=== PATIENT | male | born 1930 | race Caucasian/White ===

== ENCOUNTER → 2017-08-29 | Outpatient (CLI) | payer OTHER | LOC: HYPER 07:31 | DX: L89.313 Pressure ulcer of right buttock, stage 3 (principal); L89.612 Pressure ulcer of right heel, stage 2; M19.90 Unspecified osteoarthritis, unspecified site; I10 Essential (primary) hypertension; I25.10 Atherosclerotic heart disease of native coronary artery without angina pectoris; Z98.41 Cataract extraction status, right eye; Z98.42 Cataract extraction status, left eye; Z96.653 Presence of artificial knee joint, bilateral; Z95.1 Presence of aortocoronary bypass graft; Z86.718 Personal history of other venous thrombosis and embolism; Z87.891 Personal history of nicotine dependence; Z86.711 Personal history of pulmonary embolism ==

== ENCOUNTER → 2017-09-26 | Outpatient (CLI) | payer OTHER | LOC: HYPER 09-12 10:08 | DX: L89.313 Pressure ulcer of right buttock, stage 3 (principal); L89.612 Pressure ulcer of right heel, stage 2; M19.90 Unspecified osteoarthritis, unspecified site; I10 Essential (primary) hypertension; I25.10 Atherosclerotic heart disease of native coronary artery without angina pectoris; H26.9 Unspecified cataract; Z96.653 Presence of artificial knee joint, bilateral; Z86.711 Personal history of pulmonary embolism; Z86.718 Personal history of other venous thrombosis and embolism; Z95.1 Presence of aortocoronary bypass graft; Z87.891 Personal history of nicotine dependence ==

== ENCOUNTER → 2017-10-17 | Outpatient (CLI) | payer OTHER | LOC: HYPER 10-16 10:14 | DX: L89.313 Pressure ulcer of right buttock, stage 3 (principal); L89.612 Pressure ulcer of right heel, stage 2; M62.81 Muscle weakness (generalized); M19.90 Unspecified osteoarthritis, unspecified site; Z86.711 Personal history of pulmonary embolism; Z86.718 Personal history of other venous thrombosis and embolism; I25.10 Atherosclerotic heart disease of native coronary artery without angina pectoris; Z95.1 Presence of aortocoronary bypass graft; Z87.891 Personal history of nicotine dependence ==

== ENCOUNTER → 2017-11-13 | Outpatient (CLI) | payer OTHER | LOC: HYPER 11-07 16:54 | DX: L89.612 Pressure ulcer of right heel, stage 2 (principal); L89.313 Pressure ulcer of right buttock, stage 3; M62.81 Muscle weakness (generalized); M19.90 Unspecified osteoarthritis, unspecified site; Z86.711 Personal history of pulmonary embolism; I10 Essential (primary) hypertension; I25.10 Atherosclerotic heart disease of native coronary artery without angina pectoris; Z86.718 Personal history of other venous thrombosis and embolism; Z87.891 Personal history of nicotine dependence ==

== ENCOUNTER → 2017-12-04 | Outpatient (CLI) | payer OTHER | LOC: HYPER 06:56 | DX: L89.313 Pressure ulcer of right buttock, stage 3 (principal); L89.612 Pressure ulcer of right heel, stage 2; M19.90 Unspecified osteoarthritis, unspecified site; I10 Essential (primary) hypertension; I25.10 Atherosclerotic heart disease of native coronary artery without angina pectoris; H26.9 Unspecified cataract; Z96.653 Presence of artificial knee joint, bilateral; Z95.1 Presence of aortocoronary bypass graft; Z86.718 Personal history of other venous thrombosis and embolism; Z86.711 Personal history of pulmonary embolism; Z87.891 Personal history of nicotine dependence ==

== ENCOUNTER → 2018-01-01 | Outpatient (CLI) | payer OTHER | LOC: HYPER 06:50 | DX: L89.313 Pressure ulcer of right buttock, stage 3 (principal); L89.612 Pressure ulcer of right heel, stage 2; M19.90 Unspecified osteoarthritis, unspecified site; I10 Essential (primary) hypertension; I25.10 Atherosclerotic heart disease of native coronary artery without angina pectoris; Z98.49 Cataract extraction status, unspecified eye; Z96.653 Presence of artificial knee joint, bilateral; Z95.1 Presence of aortocoronary bypass graft; Z87.891 Personal history of nicotine dependence; Z86.711 Personal history of pulmonary embolism; Z86.718 Personal history of other venous thrombosis and embolism ==

== ENCOUNTER → 2018-01-29 | Outpatient (CLI) | payer OTHER | LOC: HYPER 06:44 | DX: L89.313 Pressure ulcer of right buttock, stage 3 (principal); L89.612 Pressure ulcer of right heel, stage 2; M19.90 Unspecified osteoarthritis, unspecified site; I10 Essential (primary) hypertension; I25.10 Atherosclerotic heart disease of native coronary artery without angina pectoris; Z96.653 Presence of artificial knee joint, bilateral; Z95.1 Presence of aortocoronary bypass graft; Z86.718 Personal history of other venous thrombosis and embolism; Z86.711 Personal history of pulmonary embolism; Z87.891 Personal history of nicotine dependence ==

== ENCOUNTER → 2018-03-04 | Outpatient (CLI) | payer OTHER | LOC: HYPER 02-26 07:07 | DX: L89.313 Pressure ulcer of right buttock, stage 3 (principal); L89.610 Pressure ulcer of right heel, unstageable; I10 Essential (primary) hypertension; I25.10 Atherosclerotic heart disease of native coronary artery without angina pectoris; M62.89 Other specified disorders of muscle; M62.81 Muscle weakness (generalized); M19.90 Unspecified osteoarthritis, unspecified site; Z98.42 Cataract extraction status, left eye; Z86.718 Personal history of other venous thrombosis and embolism; Z86.711 Personal history of pulmonary embolism; Z85.46 Personal history of malignant neoplasm of prostate; Z98.41 Cataract extraction status, right eye; Z96.653 Presence of artificial knee joint, bilateral; Z95.1 Presence of aortocoronary bypass graft; Z87.891 Personal history of nicotine dependence ==

== ENCOUNTER → 2018-05-29 | Outpatient (CLI) | payer OTHER | LOC: HYPER 06:44 | DX: L89.313 Pressure ulcer of right buttock, stage 3 (principal); L89.612 Pressure ulcer of right heel, stage 2; M62.81 Muscle weakness (generalized); M19.90 Unspecified osteoarthritis, unspecified site; I10 Essential (primary) hypertension; I25.10 Atherosclerotic heart disease of native coronary artery without angina pectoris; Z86.711 Personal history of pulmonary embolism; Z86.718 Personal history of other venous thrombosis and embolism; Z87.891 Personal history of nicotine dependence ==

== ENCOUNTER → 2018-06-19 | Outpatient (CLI) | payer OTHER | LOC: HYPER 06:52 | DX: L89.312 Pressure ulcer of right buttock, stage 2 (principal); L89.612 Pressure ulcer of right heel, stage 2; I25.10 Atherosclerotic heart disease of native coronary artery without angina pectoris; I10 Essential (primary) hypertension; M62.81 Muscle weakness (generalized); M19.90 Unspecified osteoarthritis, unspecified site; F41.9 Anxiety disorder, unspecified; Z96.653 Presence of artificial knee joint, bilateral; Z95.1 Presence of aortocoronary bypass graft; Z86.711 Personal history of pulmonary embolism; Z86.718 Personal history of other venous thrombosis and embolism; Z98.42 Cataract extraction status, left eye; Z98.41 Cataract extraction status, right eye; Z87.891 Personal history of nicotine dependence ==

== ENCOUNTER → 2018-07-08 | Outpatient (CLI) | payer OTHER | LOC: HYPER 06:40 | DX: L89.612 Pressure ulcer of right heel, stage 2 (principal); I10 Essential (primary) hypertension; M62.81 Muscle weakness (generalized); M19.90 Unspecified osteoarthritis, unspecified site; I25.10 Atherosclerotic heart disease of native coronary artery without angina pectoris; Z98.42 Cataract extraction status, left eye; Z86.718 Personal history of other venous thrombosis and embolism; Z98.41 Cataract extraction status, right eye; Z86.711 Personal history of pulmonary embolism; Z96.653 Presence of artificial knee joint, bilateral; Z95.1 Presence of aortocoronary bypass graft; Z87.891 Personal history of nicotine dependence ==

== ENCOUNTER → 2019-12-07 | Outpatient (CLI) | payer OTHER, BC | LOC: HYPER 14:35 | DX: L89.612 Pressure ulcer of right heel, stage 2 (principal); L89.313 Pressure ulcer of right buttock, stage 3; I10 Essential (primary) hypertension; I25.10 Atherosclerotic heart disease of native coronary artery without angina pectoris; K21.9 Gastro-esophageal reflux disease without esophagitis; M62.81 Muscle weakness (generalized); M19.90 Unspecified osteoarthritis, unspecified site; F41.9 Anxiety disorder, unspecified; Z86.711 Personal history of pulmonary embolism; Z86.718 Personal history of other venous thrombosis and embolism; Z87.891 Personal history of nicotine dependence; Z98.41 Cataract extraction status, right eye; Z98.42 Cataract extraction status, left eye; Z96.653 Presence of artificial knee joint, bilateral ==

== ENCOUNTER → 2020-07-20 | Outpatient (CLI) | payer OTHER, BC | LOC: HYPER 14:22 | PROVIDERS: ATTEND Emergency Medicine | DX: L89.612 Pressure ulcer of right heel, stage 2 (principal); L89.313 Pressure ulcer of right buttock, stage 3; L84 Corns and callosities; I10 Essential (primary) hypertension; I25.10 Atherosclerotic heart disease of native coronary artery without angina pectoris; K21.9 Gastro-esophageal reflux disease without esophagitis; M62.81 Muscle weakness (generalized); M19.90 Unspecified osteoarthritis, unspecified site; F41.9 Anxiety disorder, unspecified; Z95.1 Presence of aortocoronary bypass graft; Z86.718 Personal history of other venous thrombosis and embolism; Z86.711 Personal history of pulmonary embolism; Z87.891 Personal history of nicotine dependence; Z98.41 Cataract extraction status, right eye; Z98.42 Cataract extraction status, left eye; Z96.653 Presence of artificial knee joint, bilateral ==

== ENCOUNTER → 2020-08-24 | Outpatient (CLI) | payer OTHER, BC | LOC: HYPER 08-17 17:17 | PROVIDERS: ATTEND Emergency Medicine | DX: L89.612 Pressure ulcer of right heel, stage 2 (principal); L89.313 Pressure ulcer of right buttock, stage 3; L84 Corns and callosities; I10 Essential (primary) hypertension; I25.10 Atherosclerotic heart disease of native coronary artery without angina pectoris; K21.9 Gastro-esophageal reflux disease without esophagitis; M62.81 Muscle weakness (generalized); M19.90 Unspecified osteoarthritis, unspecified site; F41.9 Anxiety disorder, unspecified; Z86.711 Personal history of pulmonary embolism; Z86.718 Personal history of other venous thrombosis and embolism; Z87.891 Personal history of nicotine dependence; Z98.41 Cataract extraction status, right eye; Z98.42 Cataract extraction status, left eye; Z96.653 Presence of artificial knee joint, bilateral ==

== ENCOUNTER → 2021-02-06 | Outpatient (CLI) | payer OTHER, BC | LOC: HYPER 14:06 | PROVIDERS: ATTEND Emergency Medicine | DX: L89.612 Pressure ulcer of right heel, stage 2 (principal); L89.313 Pressure ulcer of right buttock, stage 3; L84 Corns and callosities; E66.9 Obesity, unspecified; I10 Essential (primary) hypertension; I25.10 Atherosclerotic heart disease of native coronary artery without angina pectoris; K21.9 Gastro-esophageal reflux disease without esophagitis; M62.81 Muscle weakness (generalized); M19.90 Unspecified osteoarthritis, unspecified site; F41.9 Anxiety disorder, unspecified; Z86.711 Personal history of pulmonary embolism; Z86.718 Personal history of other venous thrombosis and embolism; Z87.891 Personal history of nicotine dependence; Z98.41 Cataract extraction status, right eye; Z98.42 Cataract extraction status, left eye; Z96.653 Presence of artificial knee joint, bilateral; Z68.24 Body mass index [BMI] 24.0-24.9, adult ==

== ENCOUNTER 2021-07-11 16:37 | Inpatient (IN) | payer OTHER, BC ==
[~2021-07-11] VITALS: Ht 182.9 cm; Wt 78.9 kg
[2021-07-11 16:46] VITALS: BP 194/90
[2021-07-11 17:20] LABS: ABSOLUTE NEUTROPHILS 6.7 thou/uL (1.4-8.2); BASOPHILS 0.8 % (0.0-2.0); EOSINOPHILS 3.1 % (0.0-3.0); HEMATOCRIT 35.2 % (42.0-52.0); HEMOGLOBIN 11.4 gm/dL (14.0-18.0); LYMPHOCYTES 8.3 % (24.0-44.0); MCH 30.6 pg (26.0-34.0); MCHC 32.4 g/dL (28.0-37.0); MCV 94.5 fL (80.0-100.0); MONOCYTES 8.6 % (1.0-8.0); PLATELET COUNT 324 thou/uL (150-400); POLYS 79.2 % (36.0-66.0); RBC 3.72 mil/uL (4.50-6.00); RDW 15.7 % (10.5-14.5); WBC 8.5 thou/uL (4.0-11.0)
[2021-07-11 17:28] LABS: ANION GAP 5 mmol/L (7-16); BUN 20 mg/dL (7-18); CALCIUM 9.6 mg/dL (8.5-10.1); CHLORIDE 105 mmol/L (98-107); CO2 33 mmol/L (21-32); CREATININE 1.4 mg/dL (0.7-1.3); GLUCOSE 99 mg/dL (74-106); POTASSIUM 4.5 mmol/L (3.5-5.1); SODIUM 143 mmol/L (136-145)
[2021-07-11 17:38] LABS: ALBUMIN 3.4 g/dL (3.4-5.0); AMYLASE 35 U/L (25-115); DIRECT BILIRUBIN 0.2 mg/dL (<0.1-0.2); LIPASE 66 U/L (73-393); MAGNESIUM 1.6 mg/dL (1.8-2.4); PHOSPHORUS 3.3 mg/dL (2.6-4.7); SGOT 29 U/L (15-37); SGPT 18 U/L (16-63); TOTAL BILIRUBIN 0.6 mg/dL (0.2-1.0); TOTAL PROTEIN 7.5 g/dL (6.4-8.2); TROPONIN-I <0.06 ng/mL (<0.06)
[2021-07-11 17:50] LABS: BE(vivo) 1.9 mmol/L (-2 to +3); HCO3 26.9 mmol/L (22.0-26.0); PCO2 43.5 mmHg (35.0-45.0); pH 7.409 (7.360-7.450); sO2 93.7 % (92.0-98.0)
[2021-07-11] MEDS ORDERED: FENOFIBRATE160 MG PO (18:21)
[2021-07-11] MEDS ORDERED: CLORAZEPATE DI7.5 M1 PO (18:21)
[2021-07-11] MEDS ORDERED: DEXILANT60 MG PO (18:21)
[2021-07-11] MEDS ORDERED: CARVEDILOL12.5 MG PO (18:22)
[2021-07-11] MEDS ORDERED: NEURONTIN300 MG PO (18:22)
[2021-07-11] MEDS ORDERED: MECLIZINE HCL25 M1 PO (18:22)
[2021-07-11] MEDS ORDERED: CENTRUM SILVER1 EAC5 PO (18:22)
[2021-07-11] MEDS ORDERED: VASOTEC5 MG PO (18:23)
[2021-07-11] MEDS ORDERED: ELIQUIS5 MG PO (18:23)
[2021-07-11] MEDS ORDERED: VITAMINC500 PO (18:23)
[2021-07-11] MEDS ORDERED: LEVO-T50 MCG PO (18:23)
[2021-07-11 20:11] VITALS: BP 153/73
[2021-07-11 20:30] VITALS: BP 151/73
--- NOTE | 2021-07-12 03:41 | NUR ---
PT WAS ADMITTED TO THE UNIT FROM THE ER IN A STABLE CONDITION IN THE COMPANY OF HIS .ADMISSION HX,EDUCATION AND ASSESSMENT COMPLETED.PT'S O2 SAT WAS IN MID 70'S ON ADMIT.RT WAS ABLE TO GET HIM UP TO 92% ON 6L.PT WITH A HX OF FALL BRUISING NOTED TO HIS L CHEST.PT STATED THAT HE IS FULLY VACCINATED.GUTIERREZ CATH TO DD WITH LIGHT YELLOW URINE NOTED IN THE BAG.LASIX GIVEN X1 PER ORDER.CALL LIGHT WITHIN REACH.
[2021-07-12 04:15] VITALS: BP 122/69; BP 164/87
[2021-07-12 05:00] VITALS: BP 164/58
--- NOTE | 2021-07-12 07:11 | EKG ---
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
[2021-07-12] MEDS ORDERED: TRELEGY ELLIPT1 EACH INH (11:33)
--- NOTE | 2021-07-12 11:48 | NUR ---
ASSUMED PT CARE THIS AM. PT IS ALERT & AWAKE. PT HAS IV SITE ON LFA SALINE LOCKED. PT IS ACCUCHECK ACHS. PT BILATERAL [place] AND HAS DENTURES. PT HAS SUPRAPUBIC CATH THAT WAS PLACED YESTERDAY PER PT AND INFORMED UPDATED HOME MEDS ABOUT INHALER AND INFORMED DR. PT USES 02 NC 3L AND HAS BREATHING TREATMENT. PT ON THE CHAIR WITH ALARM ON. PT CALL LIGHT WITHIN THE REACH. PT AT THE BEDSIDE. WILL CONTINUE TO MONITOR PT. FOLLOW POC.
--- NOTE | 2021-07-12 13:01 | 2DMMODE ---
[facility] [address] [place] [address] 2 D/M-MODE ECHOCARDIOGRAM Name: TEDDY CARLOS Gokul Room #: 435-P ADM IN M.R.#: [id number] Admission: 07/11/21 Attend Phys: Susan Roldan Discharge: Date of : 32 Report #: [id number] THIS REPORT FOR: cc: Andres Moraes MD, Kirk D. MD Park, Jin S. MD ~ APPROVED REPORT Study performed: 07/12/2021 11:45:26 EXAM: Comprehensive 2D, Doppler, and color-flow Echocardiogram Patient Location: Bedside Room #: [facility] Status: routine BSA: 2.03 HR: 63 bpm BP: 167/81 mmHg Rhythm: NSR Other Information Study Quality: Good Indications COPD Diabetes Dyspnea CAD Hypertension/HDD 2D Dimensions RVDd: 41.70 mm IVSd: 10.14 (7-11mm) LVOT Diam: 22.15 (18-24mm) LVDd: 41.21 mm PWd: 9.90 (7-11mm) Ascending Ao: 34.47 (22-36mm) LVDs: 26.50 (25-40mm) Left Atrium: 46.01 (27-40mm) Aortic Root: 32.71 mm IVC: 20.00 mm Volumes Left Atrial Volume (Systole) Single Plane 4CH: 96.28 mL Single Plane 2CH: 74.02 mL LA ESV Index: 45.00 mL/m2 Aortic Valve [facility] [address] [place] [address] 2 D/M-MODE ECHOCARDIOGRAM Name: TEDDY CARLOS Room #: 435-P [facility] IN ..#: [id number] Admission: 07/11/21 Attend Phys: Susan Daniel Discharge: Date of : 32 Report #: [id number] Peak Etienne.: 1.19 m/s AO Peak Gr.: 5.68 mmHg LVOT Max P.77 mmHg LVOT Max V: 1.09 m/s ELIESER Vmax: 3.53 cm2 Mitral Valve E/A Ratio: 1.1 MV Decel. Time: 214.96 ms MV E Max Etienne.: 1.02 m/s MV A Etienne.: 0.91 m/s MV PHT: 62.34 ms IVRT: 119.95 ms Pulmonary Valve PV Peak Etienne.: 1.06 m/s PV Peak Gr.: 4.52 mmHg Pulmonary Vein P Vein S: 0.63 m/s P Vein A: 0.23 m/s P Vein D: 0.54 m/s P Vein A Dur.: 120.0 msec P Vein S/D Ratio: 1.17 Tricuspid Valve TR Peak Etienne.: 3.25 m/s TR Peak Gr.: 42.15 mmHg PA Pressure: 52.00 mmHg Left Ventricle The left ventricle is normal size. There is normal LV segmental wall motion. There is normal left ventricular wall thickness. The left ventricular systolic function is normal. The left ventricular ejection fraction is within the normal range. LVEF is 60-65%. Grade II - pseudonormal filling dynamics. Right Ventricle The right ventricle is normal size. The right ventricular systolic function is normal. Atria Left atrium is dilated. Right atrium is dilated. Aortic Valve Aortic valve is calcified. No aortic regurgitation is present. There is no aortic valvular stenosis. Mitral Valve The mitral valve is normal in structure. Trace mitral regurgitation. [facility] [place] [address] 2 D/M-MODE ECHOCARDIOGRAM Name: TEDDY CARLOS Gokul Room #: 435-P [facility] IN .R.#: [id number] Admission: 07/11/21 Attend Phys: Susan Daniel Discharge: Date of : 32 Report #: [id number] No evidence of mitral valve stenosis. Tricuspid Valve The tricuspid valve is normal in structure. There is mild tricuspid regurgitation. Estimated PAP 50 mmHg. There is moderate pulmonary hypertension. Pulmonic Valve The pulmonary valve is normal in structure. There is no pulmonic valvular regurgitation. Great Vessels The aortic root is normal in size. IVC is dilated and collapses >50% with inspiration. Pericardium There is no pericardial effusion. <Conclusion> The left ventricle is normal size. There is normal left ventricular wall thickness. The left ventricular systolic function is normal. Grade II - pseudonormal filling dynamics. The right ventricle is normal size. Left atrium is dilated. Aortic valve is calcified. Trace mitral regurgitation. There is mild tricuspid regurgitation. Estimated PAP 50 mmHg. <ELECTRONICALLY SIGNED> By: Jerardo Lr MD 07/12/21 1301 1301 1301 Jerardo Lr MD /INF
--- NOTE | 2021-07-12 13:30 | NUR ---
ASSESSMENT: CM REVIEWED CHART AND SPOKE WITH PATIENT AT THE BEDSIDE. PT WAS ADMITTED FOR COPD EXACERBATION. PT IS CURRENTLY ON 2L OXYGEN BUT DOES NOT WEAR IT AT HOME. PT REPORTS HAVING A TRIOLOGY AT HOME THAT HIS IS BRINGING UP. PT REPORTS THAT HE LIVES IN A HOUSE WITH HIS . PT REPORTS HAVING ABOUT 4 STEPS WITH HANDRAILS TO ENTER THE HOME. PT REPORTS ONCE INSIDE ALL HIS NEEDS ARE ON THE MAIN LEVEL. PT REPORTS THAT HE USES A WALKER AT ALL TIMES. PT REPORTS HE DOES NOT GET IN THE SHOWER BUT DOES A BED BATH. PT REPORTS THAT HE RECENTLY WAS AT [facility] AND THEN WENT TO REHAB CENTER IN [place]. AFTER REHAB OF [place] PT WAS SENT HOME WITH HOME HEALTH ABOUT 2 WEEKS AGO HE STATES. PT IS UNSURE THE HH AGENCY BUT STATES [facility] WOULD KNOW. CM ATTEMPTED TO CONTACT LIASON AT [facility] TO SEE IF THEY KNOW THE HOME HEALTH AGENCY. CM ALSO LEFT VM WITH [facility] TO SEE IF THEY HAVE WHAT HH PATIENT WENT HOME WITH. CM WILL CONTINUE TO FOLLOW. PT IS HOPEFUL HE WILL BE ABLE TO RETURN HOME WITH HOME HEALTH.
[2021-07-12 15:56] VITALS: BP 145/91
[2021-07-12 19:10] VITALS: BP 119/67
[2021-07-13 04:07] VITALS: BP 161/74
--- NOTE | 2021-07-13 04:13 | NUR ---
PT OBSERVED SITTING UP IN THE CAHIR IN HIS ROOM AT SHIFT CHANGE.PT DENIED PAIN SO FAR.PT STIL ON 3L/NC.SOB WITH EXERTION NOTED WITH ACTIVITY.PT ABLE TO MAKE HIS NEEDS KNOWN.CALL LIGHT WITHIN REACH.
--- NOTE | 2021-07-13 10:04 | NUR ---
ASSUMED PT CARE THIS AM. PT IS ALERT & ORIENTED X4. PT HAS IV SITE ON R FA. . PT HAS [place] AND USES HEARING AIDS AND DENTURES. PT HAS SUPRAPUBIC CATH. PT IS ACCUCHECK ACHS. PT ON THE CHAIR WITH ALARM ON. PT TOLERATED MEDICATION AND DIET WELL. NO C/O OF PAIN, NAUSEA AND VOMITING. PT IS ON 3L NC 02. WILL CONTINUE TO MONITOR PT. FOLLOW POC.
--- NOTE | 2021-07-13 11:30 | NUR ---
on-going assessment: CM REVIEWED CHART AND SPOKE WITH ATTENDING. PT IS PROGRESSING TOWARDS DISCHARGE GOALS AND POSSIBLE DISCHARGE HOME TOMORROW. PT REMAINS ON IV STEROIDS AT THIS TIME. PT IS CURRENTLY ON 3L OXYGEN AND DOES NOT HAVE IT ARRANGED AT HOME. PT MAY REQUIRE OXYGEN AT DISCHARGE AND PHYSICIAN STATING HE WILL ORDER SAT EXERCISE TEST IN THE AM. PHYSICIAN STATING PT WILL ALSO NEED A NEDBULIZER FOR HOME. PT HAS NO PREFERENCE OF DME COMPANY. CM NOTIFIED LIASON AT [facility] [facility] WHO STATES THEY CAN PROVIDE PATIENT WITH BOTH ONCE ALL DOCUMENTATION IS GATHERED. PT CONTINUES TO WORK WITH THERAPY AND CM UPDATED [facility] OF POSSIBLE DISCHARGE TOMORROW. CM WILL CONTINUE TO FOLLOW.
[2021-07-13 16:28] VITALS: BP 113/60
[2021-07-13 19:53] VITALS: BP 100/60
--- NOTE | 2021-07-14 05:04 | NUR ---
Pt. rested quietly at intervals during the night when checked on during frequent rounds. He offers no c/o pain or shortness of air. Up with gait belt and walker this am to toilet. Currently in bed with bed alarm on.
[2021-07-14 07:25] VITALS: BP 151/77
[2021-07-14] MEDS ORDERED: LEVOFLOXACIN500 MG PO (08:40)
[2021-07-14] MEDS ORDERED: PREDNISONE 10 M10 MG PO (08:42)
[2021-07-14] MEDS ORDERED: IPRAT-ALBUT 0.5-3 ML INH (08:46)
--- NOTE | 2021-07-14 10:14 | NUR ---
Assumed care of pt at 0700. Pt a&ox4. Hard of hearing. Up SBA. Evaluated for home oxygen. Qualified for oxygen therapy with acitivites. Denies pain. Suprapubic catheter in place. Pt will discharge to home today. Call light within reach. Fall precautions in place. Will continue to monitor.
[2021-07-14 11:58] VITALS: BP 151/77
[2021-07-14 12:24] VITALS: BP 151/77
--- NOTE | 2021-07-14 12:30 | NUR ---
ON-GOING ASSESSMENT: CM REVIEWED CHART AND SPOKE WITH ATTENDING WHO REPORTS PT CAN DISCHARGE HOME TODAY WITH HOME HEALTH, OXYGEN, AND NEBULIZER. CM SPOKE WITH LIASON FROM [facility] PT HAD NO PREFERENCE OF [employer] AND SHE HAS VERIFIED INSURANCE. PT HAD SAT EXERCISE AND QUALIFIES FOR 3L OXYGEN WITH EXERTION. CM PROVIDER LIASON FROM [facility] [facility] WITH SCRIPT FOR OXYGEN AND NEBULIZER. [facility] WILL DELIVER A PORTABLE TANK FOR OXYGEN TO PATIENTS ROOM PRIOR TO DISCHARGING. CM NOTIFIED BEDSIDE RN. CM FAXED DISCHARGE PAPERWORK TO [facility] AND CONFIRMED THEY RECEIVED IT AND NOTIFIED LIASON. PT REPORTS NO FURTHER NEEDS FROM [facility] PRIOR TO DISCHARGE. PTS WILL BE HERE TO TAKE HIM HOME. CASE CLOSED.
[2021-07-14 13:52] VITALS: BP 151/77
== END 2021-07-14 14:56 | disposition home health service (06) | DRG 193 ==
LOC: ER 16:37 → 4S 18:30 → EROBS 18:30 → 4S 20:03
PROVIDERS: Emergency Medicine; ADMIT Hospitalist; ATTEND Hospitalist
DX: J18.9 Pneumonia, unspecified organism (principal); J96.00 Acute respiratory failure, unspecified whether with hypoxia or hypercapnia; J44.1 Chronic obstructive pulmonary disease with (acute) exacerbation; J44.0 Chronic obstructive pulmonary disease with (acute) lower respiratory infection; I50.9 Heart failure, unspecified; Z20.822 Contact with and (suspected) exposure to COVID-19; E78.5 Hyperlipidemia, unspecified; J45.909 Unspecified asthma, uncomplicated; E11.9 Type 2 diabetes mellitus without complications; E03.9 Hypothyroidism, unspecified; K59.00 Constipation, unspecified; I11.0 Hypertensive heart disease with heart failure; R53.81 Other malaise; R63.4 Abnormal weight loss; G47.00 Insomnia, unspecified; Z86.711 Personal history of pulmonary embolism; Z88.0 Allergy status to penicillin; Z88.2 Allergy status to sulfonamides; Z86.718 Personal history of other venous thrombosis and embolism; Z68.23 Body mass index [BMI] 23.0-23.9, adult; Z88.8 Allergy status to other drugs, medicaments and biological substances; Z91.041 Radiographic dye allergy status
CPT/HCPCS: 10195

== ENCOUNTER → 2021-07-11 | Outpatient (CLI) | payer OTHER, BC ==
[~2021-07-11] MED LIST: CARVEDILOL12.5 MG PO; CENTRUM SILVER1 EAC5 PO; CLORAZEPATE DI7.5 M1 PO; DEXILANT60 MG PO; ELIQUIS5 MG PO; FENOFIBRATE160 MG PO; IPRAT-ALBUT 0.5-3 ML INH; LEVO-T50 MCG PO; LEVOFLOXACIN500 MG PO; MECLIZINE HCL25 M1 PO; NEURONTIN300 MG PO; PREDNISONE 10 M10 MG PO; TRELEGY ELLIPT1 EACH INH; VASOTEC5 MG PO; VITAMINC500 PO
== END ==
LOC: HYPER 08:12
PROVIDERS: ATTEND Emergency Medicine
DX: L89.612 Pressure ulcer of right heel, stage 2 (principal); L89.313 Pressure ulcer of right buttock, stage 3; L89.156 Pressure-induced deep tissue damage of sacral region; M62.81 Muscle weakness (generalized); L03.115 Cellulitis of right lower limb; M19.90 Unspecified osteoarthritis, unspecified site; I10 Essential (primary) hypertension; E66.9 Obesity, unspecified; F41.9 Anxiety disorder, unspecified; Z68.24 Body mass index [BMI] 24.0-24.9, adult; Z86.711 Personal history of pulmonary embolism; Z86.718 Personal history of other venous thrombosis and embolism; I25.10 Atherosclerotic heart disease of native coronary artery without angina pectoris; Z98.41 Cataract extraction status, right eye; Z98.42 Cataract extraction status, left eye; Z96.653 Presence of artificial knee joint, bilateral; Z98.890 Other specified postprocedural states; Z87.891 Personal history of nicotine dependence; Z79.84 Long term (current) use of oral hypoglycemic drugs; Z79.899 Other long term (current) drug therapy

== ENCOUNTER 2021-08-20 15:19 | Inpatient (IN) | payer OTHER, BC ==
[~2021-08-20] VITALS: Ht 188 cm; Wt 79.4 kg
--- NOTE | ~2021-08-20 | EMS ---
[facility] [address] [place] [address] EMS Patient Care Report Name: TEDDY CARLOS Room #: REG Brian#: [id number] Admission: 08/20/21 Attend Phys: Discharge: Date of : 32 Report #: [id number] THIS REPORT FOR: //name// Report Transmitted: 08/20/2021 15:22 EMS Care Summary [place], [place]/[facility] Incident [id number] @ 08/20/2021 14:40 Incident Location [facility]UMERA MCDOWELL H2 Patient TEDDY CARLOS Male, 89 Years 1930 Patient Address [address] [place] [address] [address] [place] [address] Patient History Chronic Obstructive Pulmonary Disease (COPD),Hyperlipidemia,Anxiety,Atrial Fibrillation,Hypothyroidism,Dysphagia,Hypokalemia, Patient Allergies Penicillin allergy,Morphine,Sulfa,Oxycodone,Niacin,Celebrex, Patient Medications Gabapentin, Eliquis, Metformin, Lisinopril, Carvedilol, Chief Complaint ALTERED MENTAL STATUS Disposition Transported No Lights/[place] Reason Unconscious/Fainting Trans[place] [facility] [place] Narrative DISPATCHED EMERGENCY TO THE SCENE OF A REPORTED UNCONSCIOUS PERSON. UPON ARRIVAL, WAS CONTACTED BY THE PATIENT'S WHO STATES THAT THE PATIENT WAS [facility] [address] [place] [address] EMS Patient Care Report Name: TEDDY CARLOS Room #: REG MARY Torres#: [id number] Admission: 08/20/21 Attend Phys: Discharge: Date of : 32 Report #: [id number] LAST SEEN WITH NORMAL MENTATION AT LUNCH TODAY. UPON CONTACT, PATIENT IS RESPONSIVE TO PAINFUL STIMULI. PATIENT PRESENTS VERY PALE. PATIENT IS ALERT AND ORIENTED WHEN ASKED QUESTIONS BUT QUICKLY GOES BACK TO SLEEP. PATIENT DENIES ANY PAIN. PATIENT STATES HE FEELS WEAK AND TIRED. NURSING STAFF STATES THAT THE PATIENT'S OXYGEN SATURATIONS WERE 88% PRIOR TO CALLING 9-1-1 AND INCREASING HIS OXYGEN TO 6lpm. PATIENT IS TRANSFERRED TO THE COT AND SECURED. TRANSPORTED TO THE AMBULANCE, LOADED, AND SECURED. VITAL SIGNS ASSESSED. 3-LEAD ECG REVEALS 1ST DEGREE AV BLOCK. 22g IV SALINE LOCK ESTABLISHED IN RIGHT FOREARM. 22g NS WO ESTABLISHED IN LEFT HAND. PATIENT TRANSPORTED IN A POSITION OF COMFORT TO [facility] WITHOUT INCIDENT OR CHANGE IN CONDITION. VITAL SIGNS MONITORED DURING TRANSPORT. PATIENT CARE TRANSFERRED TO ED STAFF. Initial Vitals @14:56P: 71,R: 18,Pain: 0/10,GCS: 14,CO: 4,SpO2: 92, @15:03P: 70,R: 18,BP: 101/58,Pain: 0/10,GCS: 14,Temp: 96.1F,SpO2: 94,Revised Trauma: 12, @14:54P: 68,R: 18,BP: 82/52,Pain: 0/10,GCS: 13,Glucose: 158,SpO2: 94,Revised Trauma: 11, Assessments @14:48MENTAL:Person Oriented,Event Oriented,Place Oriented,Time Oriented,Other,SKIN:Pale,HEENT:Head/Face: No Abnormalities,Neck/Airway: No Abnormalities,LUNG SOUNDS:General: No Abnormalities,ABDOMEN:General: No Abnormalities,PELVIS//GI:No Abnormalities,EXTREMITIES:Left Arm: No Abnormalities,Right Arm: No Abnormalities,Left Leg: No Abnormalities,Right Leg: No Abnormalities,PULSE:Radial: 2+ Normal,NEURO:No Abnormalities, Impression Altered Mental Status Procedures @PTAOxygen FlowRate: 4 Device: Nasal Cannula (NC) Response: ImprovedSucceeded@14:48ALS AssessmentResponse: UnchangedSucceeded@15:05Normal Saline (.9% NaCl) 200cc (22 ga) Site: Hand-LeftResponse: UnchangedSucceeded@15:05Saline Lock 10cc (22 ga) Site: Forearm-RightResponse: UnchangedSucceeded@15:003-Lead ECGResponse: UnchangedSucceeded Timeline FUNERAL PRE ARRANGEMENT COUNSELOR,Oxygen FlowRate: 4 Device: Nasal Cannula (NC) Response: ImprovedSucceeded, 14:38,Call Received 14:38,Dispatch Notified 14:40,Dispatched 14:41,En Route 14:45,On Scene 14:48,At Patient [facility] [address] [place] [address] EMS Patient Care Report Name: TEDDY CARLOS Room #: REG MARY Torres#: [id number] Admission: 08/20/21 Attend Phys: Discharge: Date of : 32 Report #: [id number] 14:48,ALS Assessment,Response: UnchangedSucceeded, 14:54,BP: 82/52 M,PULSE: 68,RR: 18 R,SPO2: 94 Ox,ETCO2: ,B,PAIN: 0,GCS: 13, 14:56,BP: / M,PULSE: 71,RR: 18 R,SPO2: 92 Ox,ETCO2: ,BG: ,PAIN: 0,GCS: 14, 15:00,3-Lead ECG,Response: UnchangedSucceeded, 15:03,BP: 101/58 M,PULSE: 70,RR: 18 R,SPO2: 94 Ox,ETCO2: ,BG: ,PAIN: 0,GCS: 14, 15:05,Saline Lock 10cc 22 ga Site: Forearm-Right,Response: UnchangedSucceeded, 15:05,Normal Saline (.9% NaCl) 200cc 22 ga Site: Hand-Left,Response: UnchangedSucceeded, 15:09,Depart Scene 15:12,At Destination 15:35,Call Closed Disclaimer v1.1 Copyright 2020 [employer] This EMS Care Summary contains data elements from the applicable legal record (which may be displayed differently). It is designed to provide pertinent information for the following purposes: continuity of care, clinical quality, and state data reporting. The complete legal record is available to ED staff and administrators of the receiving hospital in ES's Patient Tracker. All data is provided "as is."
[2021-08-20 15:19] VITALS: BP 124/57
[2021-08-20 16:05] LABS: ABSOLUTE NEUTROPHILS 6.4 thou/uL (1.4-8.2); BASOPHILS 0.4 % (0.0-2.0); EOSINOPHILS 3.1 % (0.0-3.0); HEMATOCRIT 31.6 % (42.0-52.0); HEMOGLOBIN 10.1 gm/dL (14.0-18.0); LYMPHOCYTES 7.8 % (24.0-44.0); MCH 28.9 pg (26.0-34.0); MCHC 31.8 g/dL (28.0-37.0); MCV 90.9 fL (80.0-100.0); MONOCYTES 11.3 % (1.0-8.0); PLATELET COUNT 314 thou/uL (150-400); POLYS 77.4 % (36.0-66.0); RBC 3.48 mil/uL (4.50-6.00); RDW 15.2 % (10.5-14.5); WBC 8.2 thou/uL (4.0-11.0)
[2021-08-20 16:06] LABS: URINE BILIRUBIN NEGATIVE (Negative); URINE BLOOD 1+ (Negative); URINE CLARITY CLOUDY; URINE COLOR YELLOW; URINE GLUCOSE-RANDOM* NEGATIVE (Negative); URINE KETONES NEGATIVE (Negative); URINE NITRITE-REFLEX NEGATIVE (Negative); URINE PROTEIN (DIPSTICK) 1+ (Negative); URINE SPECIFIC GRAVITY >= 1.030 (1.005-1.035); URINE UROBILINOGEN 0.2 E.U./dl (0.2-1.0)
[2021-08-20 16:08] LABS: CALCIUM 8.7 mg/dL (8.5-10.1); CREATININE 1.5 mg/dL (0.7-1.3)
[2021-08-20 16:12] LABS: BE(vivo) 4.5 mmol/L (-2 to +3); HCO3 34.3 mmol/L (22.0-26.0); PO2 232.6 mmHg (80.0-100.0); sO2 99.3 % (92.0-98.0)
[2021-08-20 16:14] LABS: PCO2 83.8 mmHg (35.0-45.0)
[2021-08-20 16:15] LABS: URINE LEUKOCYTES-REFLEX 3+ (Negative)
[2021-08-20 16:15] LABS: APTT 21.9 Seconds (24.5-32.8); INR 1.17; PROTIME 12.7 Seconds (10.5-12.1)
[2021-08-20 16:18] LABS: ALBUMIN 2.3 g/dL (3.4-5.0); TOTAL BILIRUBIN 0.3 mg/dL (0.2-1.0); TOTAL PROTEIN 5.7 g/dL (6.4-8.2)
[2021-08-20 16:46] LABS: BACTERIA-REFLEX >30 Many /HPF (None Seen); SQUAMOUS 0-3 Few /LPF (0-3); URINE RBC 3-10 Few /HPF (NONE SEEN); URINE WBC-REFLEX >25 Many /HPF (0-5); YEAST-REFLEX Present (None Seen)
[2021-08-20 16:47] LABS: CALCIUM OXALATE 0-3 Few /LPF (None Seen)
[2021-08-20 21:10] VITALS: BP 104/55
[2021-08-20 22:34] LABS: BE(vivo) 3.5 mmol/L (-2 to +3); HCO3 31.5 mmol/L (22.0-26.0); PO2 111.2 mmHg (80.0-100.0); sO2 97.4 % (92.0-98.0)
[2021-08-20 22:35] LABS: PCO2 67.5 mmHg (35.0-45.0)
[2021-08-20 22:36] LABS: pH 7.287 (7.360-7.450)
[2021-08-20 22:41] VITALS: BP 106/52
--- NOTE | 2021-08-21 03:32 | NUR ---
ADMITTED THIS PATIENT AROUND 2155H 08/20/21 FROM THE EMERGENCY.PATIENT IS DIFFICULT TO AROUSE AND ONLY OPEN EYES TO PAINFUL STIMULI.DOES NOT RESPOND TO QUESTIONS.PATIENT IS ON BIPAP AT 40% FIO2 BUT PATIENT IS TACHYPNEIC UPON ADMISSION.PRO BNP AND TROPONIN WERE ELEVATED, INFORMED LOCATION MAN ABOUT IT.DR. JOSEPH CONSULTED AND SPOKE TO HIM OVER THE PHONE AROUND 2200H AND RELAYED TO HIM THE TROPONIN AND BNP RSSULT WELL THE LAST EKG. PER DR. JOSEPH, NO INTERVENTION NEEDED AT THIS TIME.ABG WAS REPEATED AND RELAYED TO LOCATION MAN, BIPAP SETTINGS WERE CHANGED, FIO2 30%.ADMISSION COMPLETED WITH LIMITED INFORMATIONS PATIENT IS NON VERBAL THIS TIME AND DOES NOT RESPOND TO QUESTIONS.FALL PREVENTION MEASURES MAINTAINED.ALL NEEDS ATTENDED.
[2021-08-21 04:21] VITALS: BP 162/73
[2021-08-21 04:44] LABS: HEMATOCRIT 32.1 % (42.0-52.0); HEMOGLOBIN 10.3 gm/dL (14.0-18.0); MCH 29.2 pg (26.0-34.0); MCV 91.1 fL (80.0-100.0); RBC 3.53 mil/uL (4.50-6.00); RDW 15.1 % (10.5-14.5); WBC 7.2 thou/uL (4.0-11.0)
[2021-08-21 05:32] LABS: CALCIUM 8.9 mg/dL (8.5-10.1); CREATININE 1.3 mg/dL (0.7-1.3); POTASSIUM 5.1 mmol/L (3.5-5.1)
--- NOTE | 2021-08-21 06:39 | NUR ---
AT 0500H, ARUN TIS YELLING AND STARTED TO WAKE UP.WAS TRYING TO REMOVE THE BIPAP MASK.REORIENTED PATIENT AND TOLD HIM TO KEEP HIS BIPAP MASK.TO CONTINOUSLY MONITOR LEVEL OF CONSCIOUSNESS.
--- NOTE | 2021-08-21 07:35 | EKG ---
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 : 1930 Requested By: Glenn Graves Order Number: [id number] MD: Randy Hardin Measurements Intervals [place] Rate: 69 P: 26 HI: 242 QRS: 85 QRSD: 97 T: 31 QT: 396 QTc: 425 Interpretive Statements Sinus rhythm Prolonged HI interval Borderline right axis deviation Baseline wander in lead(s) V2 Compared to ECG 07/11/2021 18:08:08 No significant changes Electronically Signed On 08-21-2021 7:35:34 CDT by Randy Hardin [email or web address] <ELECTRONICALLY SIGNED> By: Randy Hardin MD, [facility] 08/21/21 0735 29 29 Randy Hardin MD, FACC /EPI
[2021-08-21 07:55] VITALS: BP 139/66
--- NOTE | 2021-08-21 11:48 | NUR ---
PT OVERBREATHING THE BIPAP THIS AM. CONTACT DR. CID AND SERGEY TO ASSESS PT. INSTRUCTED TO GIVE ALBUMIN, LASIX ATIVAN. CXRY OBTAINED AND PT IS NOW DNR. WILL CONTINUE TO ASSESS.
[2021-08-21 12:10] VITALS: BP 154/71
--- NOTE | 2021-08-21 13:19 | NUR ---
INITIAL ASSESSMENT: SW reviewed chart and spoke with nursing and attending physician. Pt was admitted from [facility] due to AMS. Pt with hx of COPD/asthma. Pt is on IV abx and IV steroids and requiring continuous bipap support. Pt was recently hospitalized at [facility] and discharged home on 07/14 with [facility]. Pt has been fully vaccinated for COVID. Pt's not present at the bedside. Pt's code status was changed to DNR today. Pt has also been to [facility] in the past. [facility] liaison was onsite earlier and met with pt and . Clinical info to be sent to [facility] for review. SW is following to assist as needed with discharge planning.
[2021-08-21 15:50] VITALS: BP 149/64
--- NOTE | 2021-08-21 16:19 | 2DMMODE ---
[address] [address] 2 D/M-MODE ECHOCARDIOGRAM Name: TEDDY CARLOS Room #: 205-P ADM IN M.R.#: [id number] Admission: 08/20/21 Attend Phys: Shaniqua Rollins MD Discharge: Date of : 32 Report #: [id number] THIS REPORT FOR: cc: Sergo Amaya MD, Christopher B. MD Lundgren, Craig H. MD [facility] ~ APPROVED REPORT Study performed: 08/21/2021 12:24:09 EXAM: Comprehensive 2D, Doppler, and color-flow Echocardiogram Patient Location: Bedside Room #: [facility] Status: routine BSA: 2.05 HR: 73 bpm BP: 139/66 mmHg Rhythm: NSR Other Information Study Quality: Adequate Indications Congestive Heart Failure COPD Dyspnea Hypertension/HDD Tricuspid Valve TR Peak Etienne.: 3.88 m/s TR Peak Gr.: 60.14 mmHg PA Pressure: 70.00 mmHg Left Ventricle The left ventricle is normal size. There is normal left ventricular wall thickness. The left ventricular systolic function is normal. The left ventricular ejection fraction is within the normal range. LVEF is 60-65%. Mild diastolic dysfunction Right Ventricle The right ventricle is normal size. The right ventricular systolic function is normal. [facility] [address] [address] 2 D/M-MODE ECHOCARDIOGRAM Name: TEDDY CARLOS Room #: 205-P ADM IN M.R.#: [id number] Admission: 08/20/21 Attend Phys: Shaniqua Rollins MD Discharge: Date of : 32 Report #: [id number] Left atrium is dilated. Right atrium is dilated. Aortic Valve Aortic valve is moderately calcified. No aortic regurgitation is present. There is no aortic valvular stenosis. Mitral Valve Mild mitral annular calcification. Trace mitral regurgitation. No evidence of mitral valve stenosis. Tricuspid Valve The tricuspid valve is normal in structure. There is mild tricuspid regurgitation. Estimated PAP 70 mmHg. There is severe pulmonary hypertension. Pulmonic Valve The pulmonary valve is normal in structure. There is no pulmonic valvular regurgitation. Great Vessels The aortic root is normal in size. IVC is not well visualized. Pericardium There is no pericardial effusion. <Conclusion> Abbreviated study The left ventricular systolic function is normal. LVEF is 60-65%. Mild diastolic dysfunction Aortic valve is moderately calcified. No aortic regurgitation or stenosis Mild mitral annular calcification. Trace mitral regurgitation. There is mild tricuspid regurgitation. Estimated pulmonary artery pressure of 70 mmHg. There is no pericardial effusion. <ELECTRONICALLY SIGNED> By: Lawrence Mckeon MD, [facility] 08/21/21 1618 1618 1618 Lawrence Mckeon MD, FACC /INF
--- NOTE | 2021-08-21 16:26 | EKG ---
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 : 1930 Requested By: Mary Paz Order Number: [id number] MD: Randy Hardin Measurements Intervals [place] Rate: 68 P: 74 TN: 216 QRS: 83 QRSD: 97 T: 40 QT: 387 QTc: 412 Interpretive Statements Sinus rhythm Borderline prolonged TN interval Borderline right axis deviation Abnormal R-wave progression, late transition Abnormal T, consider ischemia, anterior leads Borderline ST elevation, lateral leads Compared to ECG 08/20/2021 15:30:31 T-wave abnormality now present Possible ischemia now present ST (T wave) deviation now present Electronically Signed On 08-21-2021 16:25:57 CDT by Randy Hardin [email or web address] <ELECTRONICALLY SIGNED> By: Randy Hardin MD, [facility] 08/21/21 1625 0 0 Randy Hardin MD, [facility] /EPI
--- NOTE | 2021-08-21 17:54 | NUR ---
PT RESPIRTORY RATE SLOWED DOWN AND BREATHING BETTER AT THE END OF SHIFT.
[2021-08-21 21:04] VITALS: BP 164/83
[2021-08-22 04:45] VITALS: BP 186/74
--- NOTE | 2021-08-22 06:51 | NUR ---
SHEREE FROM CALLED WITH POSITIVE BLOOD CULTURES. GRAM POSITIVE COCCI. ALL PARTIES NOTIFIED. PT A/0X2 WITH SOME CONFUSION. VSS OVERNIGHT.
[2021-08-22 07:55] VITALS: BP 186/83
[2021-08-22 08:00] VITALS: BP 186/71
[2021-08-22 10:53] LABS: CALCIUM 9.6 mg/dL (8.5-10.1); CREATININE 1.6 mg/dL (0.7-1.3)
--- NOTE | 2021-08-22 11:08 | NUR ---
TAMMY reviewed chart and spoke with nursing and attending physician. Pt is now off bipap and on 3-4L of O2 via NC. Pt is progressing towards goals for discharge. Discharge is anticipated in 1-2 days. PT/OT evals ordered today. TAMMY met with pt and spouse at bedside. Introduced role of SW. Pt is alert/orientated and sitting up in bed. SW discussed discharge needs with pt and . Both would like to try to go home with HH if pt is able to discharge home. Pt's states they would like to use [facility] if needed. Pt has home O2 in place through [facility]. TAMMY explained that therapy will evaluate and make recommendations. Pt and are agreeable with TAMMY sending info to [facility] for review. TAMMY faxed to [facility] and updated both Brigitte and Keith in admissions. TAMMY faxed HH referral to [facility] and spoke with Rossy in intake to notify of possible need for HH services at time of discharge. Rossy requests PT/OT evals to be faxed to their office when available to ensure they are able to meet pt's needs at home. Awaiting PT/OT evals at this time. TAMMY is following to assist as needed with discharge planning.
[2021-08-22 12:00] VITALS: BP 179/79
[2021-08-22 16:30] VITALS: BP 154/85
[2021-08-22 19:20] VITALS: BP 147/64
[2021-08-23] VITALS (7 sets, daily range): BP systolic 81–163; BP diastolic 51–79
--- NOTE | 2021-08-23 08:15 | NUR ---
VSS, LS COARSE, NPC, SHORT OF AIR WHEN CONVERSING. RECEIVED ORDERS FOR ZOFRAN 4MG IVP FOR C/O NAUSEA WITHOUT RELIEF. RECEIVED ORDER FOR TYLENOL 650MG PO PRN FOR C/O ABDOMINAL PAIN. SUPRAPUBIC CATHETER DRESSING C/D/I, NO LEAKING. CONTINUE PLAN OF CARE.
[2021-08-23 10:54] LABS: CREATININE 1.4 mg/dL (0.7-1.3)
--- NOTE | 2021-08-23 12:12 | NUR ---
PT IS A&OX4. PT IS CURRENTLY ON 3L NC WHICH HE WEARS AT HOME. LUNG SOUNDS CLEAR, DIMINISHED THROUGHOUT. SINUS RHYTHM ON THE MONITOR. SUPRAPUBIC CATHETER WAS REPLACED BY UROLOGIST THIS AM. PT DENIES ANY PAIN OR DISCOMFORT AT THIS TIME.
--- NOTE | 2021-08-23 17:03 | NUR ---
DC planning visit with pt/spouse at bedside this afternoon. They do not want the pt to return to [facility] as they have a positive covid case today. The pt is requiring min assist for gait and tx and therapy recommending additional snf stay before going home with hh. Options reviewed. They are agreeable to [facility] and/or [facility]. Referral called and faxed to [facility]. They anticipate having beds tomorrow. [facility] has not responded yet. Will f/u with all parties tomorrow. Anticipate dc to snf at [facility] if they can accept.
[2021-08-24 01:00] VITALS: BP 97/38
[2021-08-24 03:45] VITALS: BP 97/51
--- NOTE | 2021-08-24 07:44 | NUR ---
ASSUMED PT CARE AT 1900, PT IS AWAKE, ALERT AND ORIENTED, ASSESSMENTS CHARTED, PT WENT TO AFIB, RATE CONTROLLED IN THE 60S, THIRD RAIL INSTALLER NOTIFIED, EKG OBTAINED, NO ORDERS RECEIVED, BP LOW IN THE 90S SYSTOLIC, THIRD RAIL INSTALLER NOTIFIED, NO ORDERS RECEIVED, PT STABLE DENIES ANY CONCERNS, PASSED ON REPORT TO DAY NURSE
--- NOTE | 2021-08-24 08:09 | EKG ---
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 : 1930 Requested By: Tara Sepulveda Order Number: [id number] MD: Lawrence Mckeon Measurements Intervals [place] Rate: 60 P: MT: QRS: 78 QRSD: 104 T: 25 QT: 432 QTc: 432 Interpretive Statements Atrial fibrillation Abnormal T, consider ischemia, anterior leads Compared to ECG 08/21/2021 08:21:48 Sinus rhythm no longer present T-wave abnormality still present Electronically Signed On 08-24-2021 8:08:32 CDT by Lawrence Mckeon [email or web address] <ELECTRONICALLY SIGNED> By: Lawrence Mckeon MD, [facility] 08/24/21 0808 0404 3 Lawrence Mckeon MD, [facility] /EPI
[2021-08-24 08:30] VITALS: BP 106/49
[2021-08-24 11:30] VITALS: BP 91/50
--- NOTE | 2021-08-24 13:35 | EKG ---
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
--- NOTE | 2021-08-24 15:19 | NUR ---
[facility] snf can accept the pt today;however dc on hold due to elev bp and desating with therapy this am. [facility] will have a bed tomorrow. Pt and spouse updated at bedside.
--- NOTE | 2021-08-24 15:58 | NUR ---
PT ALERT AND ORIENTED X 4. PT [place] BUT PLEASANT. PT AFIB OR AFLUTTER MOST OF SHIFT. PT DESATED DURING PT AND BP DROPPED WHEN AMBULATING. PT'S O2 WENT INTO 70'S ON 6L NC WHILE WITH PT. DR THORNTON WAS PRESENT DURING PT WORKING WITH THERAPY. PT DENIES ANY PAIN OR DISCOMFORT AT THIS TIME. WILL CONTINUE TO MONITOR.
[2021-08-24 17:00] VITALS: BP 114/64
[2021-08-25 05:23] VITALS: BP 146/85
--- NOTE | 2021-08-25 06:51 | NUR ---
ASSUMED PT CARE AT 1900, A&O, SFIB CONTROLLED ON TELE, DENIES PAIN OR SOA, ASSESSMENTS CHARTED, MEDS GIVEN PER JAN, NO NEEDS AT THIS TIME, WILL PASS ON REPORT
[2021-08-25 09:56] VITALS: BP 163/72
[2021-08-25] MEDS ORDERED: NORVASC5 MG PO (11:42)
[2021-08-25] MEDS ORDERED: IPRAT-ALBUT 0.5-3 ML INH ×2 (11:42)
[2021-08-25] MEDS ORDERED: NEURONTIN600 MG PO (11:42)
[2021-08-25] MEDS ORDERED: ARICEPT10 M1 PO (11:42)
[2021-08-25] MEDS ORDERED: TORSEMIDE10 MG PO (11:42)
[2021-08-25] MEDS ORDERED: LINEZOLID600 MG PO (11:42)
[2021-08-25 12:00] VITALS: BP 107/54
--- NOTE | 2021-08-25 12:05 | NUR ---
Pt improved this am and dc ready for snf. [facility] alerted and they have arranged a 1pm w/c van transport. Pt with 3liters at rest and 5-6 with activity. Message left for pt's spouse but likely she is on her way here. Nursing to call report. DC orders faxed to admissions. Chart copy is ready to be sent with the pt.
--- NOTE | 2021-08-25 13:34 | NUR ---
TOOK OVER CARE FOR THIS PATIENT AT 0700. PATIENT WEARING 3 L OXYGEN VIA NASAL CANNULA AT THIS TIME AND LUNGS CTA AT THIS TIME. PT DENIES CHEST PAIN AT THIS TIME. PATIENT ALERT AND ORIENTATED BUT IS FORGETFUL AT TIME. RESPIRATORY THERAPY VISITED WITH PATIENT THIS MORNING BUT PATIENT REFUSED TO AMBULATE. PLANNING ON DISCHARGE TO REHAB/NURSING FACILITY AT THIS TIME. FALL PRECAUTIONS IN PLACE AND CALL LIGHT WITHIN REACH. PATIENT DENIES ANY NEEDS AT THIS TIME.
--- NOTE | 2021-08-25 14:04 | NUR ---
PATIENT DISCHARGED AT THIS TIME TO [facility]. PATIENT TRANSPORTED TO FACILITY. PATIENT DENIES ANY NEEDS AT THIS TIME AND IS AGREEABLE TO DISCHARGE.
== END 2021-08-25 14:45 | DRG 280 ==
LOC: ER 15:19 → EROBS 19:02 → 2N 19:02
PROVIDERS: Emergency Medicine; Hospitalist; Nurse Practitioner Adult Health; Nurse Practitioner Family; ADMIT Internal Medicine; ATTEND Internal Medicine
PROC: 5A09457 Assistance with Respiratory Ventilation, 24-96 Consecutive Hours, Continuous Positive Airway Pressure (ICD-10-PCS; principal; 2021-08-20)
DX: I21.4 Non-ST elevation (NSTEMI) myocardial infarction (principal); J96.21 Acute and chronic respiratory failure with hypoxia; J18.9 Pneumonia, unspecified organism; J96.22 Acute and chronic respiratory failure with hypercapnia; I50.31 Acute diastolic (congestive) heart failure; N39.0 Urinary tract infection, site not specified; E46 Unspecified protein-calorie malnutrition; G93.40 Encephalopathy, unspecified; J44.1 Chronic obstructive pulmonary disease with (acute) exacerbation; R77.8 Other specified abnormalities of plasma proteins; J45.909 Unspecified asthma, uncomplicated; E78.5 Hyperlipidemia, unspecified; Z96.653 Presence of artificial knee joint, bilateral; F03.90 Unspecified dementia, unspecified severity, without behavioral disturbance, psychotic disturbance, mood disturbance, and anxiety; I25.10 Atherosclerotic heart disease of native coronary artery without angina pectoris; K21.9 Gastro-esophageal reflux disease without esophagitis; F41.9 Anxiety disorder, unspecified; E03.9 Hypothyroidism, unspecified; R53.81 Other malaise; N31.9 Neuromuscular dysfunction of bladder, unspecified; R13.10 Dysphagia, unspecified; R63.4 Abnormal weight loss; N18.2 Chronic kidney disease, stage 2 (mild); I48.0 Paroxysmal atrial fibrillation; N40.1 Benign prostatic hyperplasia with lower urinary tract symptoms; I27.20 Pulmonary hypertension, unspecified; Z66 Do not resuscitate; E11.22 Type 2 diabetes mellitus with diabetic chronic kidney disease; I12.9 Hypertensive chronic kidney disease with stage 1 through stage 4 chronic kidney disease, or unspecified chronic kidney disease; Z20.822 Contact with and (suspected) exposure to COVID-19; Z86.711 Personal history of pulmonary embolism; Z88.0 Allergy status to penicillin; Z68.22 Body mass index [BMI] 22.0-22.9, adult; Z88.2 Allergy status to sulfonamides; Z88.8 Allergy status to other drugs, medicaments and biological substances; Z91.041 Radiographic dye allergy status; Z87.891 Personal history of nicotine dependence; Z95.1 Presence of aortocoronary bypass graft
CPT/HCPCS: 10081

== ENCOUNTER 2021-09-05 13:21 | Inpatient (IN) | payer OTHER, BC ==
[~2021-09-05] VITALS: Ht 182.9 cm; Wt 99.3 kg
[2021-09-05 13:21] VITALS: BP 115/58
[~2021-09-05 13:21] MED LIST changes: +ARICEPT10 M1 PO; +LINEZOLID600 MG PO; +NEURONTIN600 MG PO; +NORVASC5 MG PO; +TORSEMIDE10 MG PO
[2021-09-05 13:32] LABS: ABSOLUTE NEUTROPHILS 6.8 thou/uL (1.4-8.2); BASOPHILS 0.4 % (0.0-2.0); EOSINOPHILS 2.2 % (0.0-3.0); HEMATOCRIT 26.9 % (42.0-52.0); HEMOGLOBIN 8.8 gm/dL (14.0-18.0); LYMPHOCYTES 5.7 % (24.0-44.0); MCH 29.6 pg (26.0-34.0); MCHC 32.8 g/dL (28.0-37.0); MCV 90.3 fL (80.0-100.0); PLATELET COUNT 110 thou/uL (150-400); POLYS 82.7 % (36.0-66.0); RBC 2.98 mil/uL (4.50-6.00); RDW 15.4 % (10.5-14.5); WBC 8.2 thou/uL (4.0-11.0)
[2021-09-05 13:35] LABS: URINE BILIRUBIN NEGATIVE (Negative); URINE BLOOD 2+ (Negative); URINE COLOR YELLOW; URINE GLUCOSE-RANDOM* NEGATIVE (Negative); URINE KETONES NEGATIVE (Negative); URINE NITRITE-REFLEX NEGATIVE (Negative); URINE PROTEIN (DIPSTICK) 1+ (Negative); URINE UROBILINOGEN 0.2 E.U./dl (0.2-1.0)
[2021-09-05 13:36] LABS: URINE CLARITY SL HAZY; URINE LEUKOCYTES-REFLEX 3+ (Negative)
[2021-09-05 13:42] LABS: CALCIUM 8.3 mg/dL (8.5-10.1); POTASSIUM 4.7 mmol/L (3.5-5.1)
[2021-09-05 13:49] LABS: BACTERIA-REFLEX >30 Many /HPF (None Seen); SQUAMOUS 0-3 Few /LPF (0-3); URINE WBC-REFLEX >25 Many /HPF (0-5)
[2021-09-05 13:50] LABS: CASTS None Seen /LPF (None Seen); CRYSTALS None Seen /LPF (None Seen); YEAST-REFLEX Present (None Seen)
[2021-09-05 13:51] LABS: ALBUMIN 2.2 g/dL (3.4-5.0); TOTAL BILIRUBIN 0.6 mg/dL (0.2-1.0); TOTAL PROTEIN 5.1 g/dL (6.4-8.2)
[2021-09-05 14:35] VITALS: BP 108/47
--- NOTE | 2021-09-05 15:34 | EKG ---
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1930 Requested By: Sary Mccollum Order Number: [id number] MD: Randy Hardin Measurements Intervals [place] Rate: 60 P: 6 MD: 330 QRS: 79 QRSD: 98 T: 41 QT: 415 QTc: 415 Interpretive Statements Sinus rhythm Prolonged MD interval Compared to ECG 08/24/2021 08:52:26 First degree AV block now present Atrial fibrillation no longer present Electronically Signed On 09-05-2021 15:33:48 CDT by Randy Hardin [email or web address] <ELECTRONICALLY SIGNED> By: Randy Hardin MD, [facility] 09/05/21 1533 1331 30 Randy Hardin MD, FACC /EPI
--- NOTE | 2021-09-05 17:34 | NUR ---
ATTEMPTED TO GIVE REPORT. RN UNABLE TO TAKE REPORT
[2021-09-05 17:48] VITALS: BP 107/50
--- NOTE | 2021-09-05 18:46 | NUR ---
Patient arrived around 6:10 pm, A/O, calm and pleasant, denied pain, no n/v.
[2021-09-05 19:07] VITALS: BP 107/59
--- NOTE | 2021-09-05 23:51 | NUR ---
Pt admitted at 1810 with Sepsis,Pneumonia,UTI. A/OX4 with forgetfulness noted but able to make needs known. VSS.Denies pain on assessment. Suprapubic cath in place with yellow/cloudy/sediments urine noted. PO intake encouraged. Redness noted on chriss rectal area,moisture barrier applied. pt reports he uses a RW at home. Doesn't remember all the meds he takes, will be here in am per pt to answer our questions. Edema noted on olivier ankles 2+,extremities elevated on a pillow. Resting quietly w/o any distress at this time,oxygen on @ 3L/NC will continue to monitor pt.
[2021-09-06 03:54] VITALS: BP 118/56
[2021-09-06 05:41] LABS: ABSOLUTE NEUTROPHILS 7.6 thou/uL (1.4-8.2); BASOPHILS 0.2 % (0.0-2.0); EOSINOPHILS 1.9 % (0.0-3.0); HEMATOCRIT 28.3 % (42.0-52.0); HEMOGLOBIN 9.3 gm/dL (14.0-18.0); LYMPHOCYTES 3.7 % (24.0-44.0); MCH 29.7 pg (26.0-34.0); MCHC 32.8 g/dL (28.0-37.0); MCV 90.4 fL (80.0-100.0); MONOCYTES 8.4 % (1.0-8.0); PLATELET COUNT 107 thou/uL (150-400); POLYS 85.8 % (36.0-66.0); RBC 3.13 mil/uL (4.50-6.00); RDW 15.8 % (10.5-14.5); WBC 8.9 thou/uL (4.0-11.0)
[2021-09-06 06:05] LABS: CALCIUM 8.3 mg/dL (8.5-10.1); CREATININE 0.9 mg/dL (0.7-1.3); MAGNESIUM 1.6 mg/dL (1.8-2.4)
[2021-09-06 12:04] VITALS: BP 108/53
--- NOTE | 2021-09-06 14:42 | NUR ---
PT ADMITTED RELATED TO SEPSIS, PNA, UTI. CM REVIEWED CHART AND SPOKE WITH CARE TEAM. CM MET WITH PT AND SPOUSE AT BEDSIDE THIS DAY. PT APPEARED TO BE A&0 X 2-3. PT'S SPOUSE ANSWERED MOST ASSESSMENT QUESTIONS. THEY INDICATED THAT PT HAD BEEN AT [facility] SKILLED BUT HAD DISCHARGED HOME SATURDAY AND CAME BACK TO HOSPITAL SATURDAY. PT WAS TO START HH SERVICE WITH [facility] PRIOR TO READMISSION. PT HAD DISCHARGED FROM HERE 08/25/21 TO [facility] AND HAD BEEN HERE PREVIOUSLY AND GONE TO [facility]. 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 PT AND SPOUSE INDICATED THAT THEY WANT TO RETURN HOME ONCE MEDICALLY STABLE IF POSSIBLE. PT INDICATED HE DIDN'T WANT TO GO TO [facility] OR [facility] ASKED ABOUT [facility].. CM FOLLOWING REGARDING DC PLANNING.
[2021-09-06 16:59] VITALS: BP 111/50
--- NOTE | 2021-09-06 18:45 | NUR ---
ASSUMED CARE OF PT AT 0700. IN THE AM PT OXYGEN DEMAND INCREASED FROM 3L BASELINE TO 7L. CALLED MD WHO ASSESSED AND ORDERED 1X LASIX FOR PT. AFTER GIVING, PT REMAINED OXYGENATED THROUGHOUT THE REST OF THE EVENING, TITRATING BACK DOWN. SPOUSE VISITED AND WAS ABLE TO SIGN CONSENTS AND GIVE COPY OF THE DPOA. NO COMPLAINTS THROUGHOUT THE DAY, VSS. WILL CONTINUE TO MONITOR.
[2021-09-06 19:36] VITALS: BP 124/57
[2021-09-07 01:09] VITALS: BP 145/61
--- NOTE | 2021-09-07 03:23 | NUR ---
Pt A/OX3-4, VSS. Denies pain on assessment. Suprapubic cath in place with yellow/sediments urine noted. Has dyspnea on exertion,oxygen in place at 5L HF. SR on telemetry. Fall precautions in place. Resting quietly at this time w/o any distress. Will continue to monitor pt.
[2021-09-07 04:36] VITALS: BP 134/69
[2021-09-07 05:16] LABS: HEMATOCRIT 25.5 % (42.0-52.0); HEMOGLOBIN 8.4 gm/dL (14.0-18.0); MCH 30.2 pg (26.0-34.0); MCV 91.5 fL (80.0-100.0); RBC 2.79 mil/uL (4.50-6.00); WBC 6.8 thou/uL (4.0-11.0)
[2021-09-07 06:01] LABS: ALBUMIN 2.3 g/dL (3.4-5.0); CALCIUM 8.4 mg/dL (8.5-10.1); PHOSPHORUS 3.1 mg/dL (2.6-4.7); POTASSIUM 4.6 mmol/L (3.5-5.1)
[2021-09-07 07:15] VITALS: BP 137/65
--- NOTE | 2021-09-07 11:26 | HC ---
[facility] [place] [address] CONSULTATION Name: TEDDY CARLOS Room #: 456-P [facility] IN .R.#: [id number] Admission: 09/05/21 Attend Phys: Susan Roldan Discharge: Date of : 32 Report #: [id number] THIS REPORT FOR: cc: Andres Moraes MD, Kirk D. MD Barry, Joseph W. MD ~ DATE OF SERVICE: 09/06/2021 INFECTIOUS DISEASE CONSULTATION DATE OF CONSULTATION: 09/06/2021 ATTENDING PHYSICIAN: Dr. Roldan. REASON FOR EVALUATION: Sepsis pneumonitis, complicated urinary tract infection. HISTORY OF PRESENT SUBJECTIVE: Chart reviewed. The patient examined. This is an 89-year-old gentleman with extensive medical history, who was actually hospitalized in latter part of last month with acute on chronic respiratory failure, did have a non-STEMI as well, who had gone to the rehabilitation, was home for one day and readmitted with encephalopathy, progressive dyspnea. Additional history includes diabetes mellitus. He has underlying COPD, requiring supplemental oxygen 3 liters per nasal cannula at baseline, also was diagnosed with complicated urinary tract infection. Had polymicrobial growth including MRSA, Enterococcus. I believe he was discharged on linezolid initially to the rehab. He is able to answer some questions. His spouse is there as well. At this point, there is moderate dyspnea. He denies any chest pain. No nausea or emesis, or other GI related complaints. Initial evaluation in the emergency room noted a UA with greater than 25 white cells, greater than 30 bacteria, yeast present, early urine culture with growth of Shannon albicans greater than 10 to the 5th. Blood cultures are sterile thus far. Coronavirus testing was negative. Initial lactic acid of 3.4, repeat was 1.1. Chest x-ray does show cardiomegaly with moderate bilateral infiltrates. There is question of edema versus pneumonitis. He was empirically placed on antibiotics with levofloxacin and vancomycin, single dose of fluconazole. ALLERGIES: LISTED TO PENICILLIN, SULFA, TRAMADOL, ATORVASTATIN, CELEBREX and VIOXX. CURRENT MEDICATIONS: Include levofloxacin, pantoprazole, levothyroxine, vancomycin, budesonide, ipratropium, albuterol inhaler, gabapentin, sliding scale insulin, acetaminophen, and intermittent furosemide. PAST MEDICAL HISTORY: Above noted COPD, O2 requiring 3 liters per nasal cannula at baseline, hypertension, history of PE, diabetes mellitus, dementia, hypothyroidism. 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 SOCIAL HISTORY: He is , nonsmoker, no ethanol, no illicit drug use. FAMILY HISTORY: Noncontributory. REVIEW OF SYSTEMS: Otherwise, unremarkable. PHYSICAL EXAMINATION: GENERAL: He is pleasant, cooperative. He is mild to moderately encephalopathic, appears chronically ill and undernourished, mild to moderate distress. VITAL SIGNS: Temperature 98.1, pulse 68, respirations 17, blood pressure 118/56. SKIN: Warm, dry, no rashes. HEENT: Normocephalic. Extraocular muscles intact. Nasal cannula in place. NECK: Supple. LUNGS: Bilateral scattered coarse breath sounds. HEART: Regular, do not appreciate a murmur. ABDOMEN: Nondistended, soft, nontender. EXTREMITIES: No cyanosis. GENITOURINARY AND RECTAL: Deferred. LABORATORY DATA: Urine culture greater than 10 to the 5th Shannon albicans. MRSA screen was negative. Blood cultures negative thus far. Electrolytes: Sodium 137, potassium 5, chloride 101, bicarbonate is 35, anion gap of 1, BUN and creatinine 24 and 0.9. Estimated GFR of 79. CBC: White count of 8.9, H and H 9.3 and 28.3, platelets of 107. Initial lactic acid 3.4, repeat was 1.1. Coronavirus testing was negative. CT of the head showed chronic changes, nothing acute. Chest x-ray, cardiomegaly, bilateral infiltrates. Urinalysis described above, greater than 25 white cells, greater than 30 bacteria. ASSESSMENT AND PLAN: Complicated urinary tract infection. The patient was just recently treated with broad-spectrum antimicrobials. Certainly has an issue with chronic catheter would be at risk for recurrence, may need to exchange that. We will await results with early growth of Shannon albicans, redose the fluconazole. In addition to that, we will keep antibiotics. Secondly, he may have pneumonitis, certainly a risk for aspiration. Reportedly, he is improved since his admission, may well be secondary to some resuscitative efforts, felt perhaps to be volume expanded and given some diuretic. We will add incentive [facility] [address] [place] [address] CONSULTATION Name: TEDDY CARLOS Room #: 456-P ADM IN M.R.#: [id number] Admission: 09/05/21 Attend Phys: Susan Roldan Discharge: Date of : 32 Report #: [id number] spirometry. He remains tenuous at this point. Continue to monitor expectantly. We will follow. <ELECTRONICALLY SIGNED> By: Pelon Foster MD 09/07/21 1126 1513 0037 Pelon Foster MD /nt
[2021-09-07 11:44] VITALS: BP 96/46
--- NOTE | 2021-09-07 14:36 | NUR ---
CM FOLLOWED UP WITH PT AND SPOUSE AT BEDSIDE THIS DAY. CM INDICATED SKILLED RECOMMENDED. THEY ASKED THAT REFERRAL BE SENT TO [facility] FOR REVIEW FOR POSSIBLE SHORT TERM SKILLED REHAB STAY. CM FOLLOWING REGARDING DC PLANNING. REFERRAL FAXED. AWAITING REVIEW AND RESPONSE.
[2021-09-07 16:56] VITALS: BP 88/44
[2021-09-07 20:43] VITALS: BP 105/45
[2021-09-08 04:44] LABS: ALBUMIN 2.3 g/dL (3.4-5.0); CALCIUM 8.4 mg/dL (8.5-10.1); CREATININE 1.1 mg/dL (0.7-1.3)
[2021-09-08 06:57] LABS: BE(vivo) 8.5 mmol/L (-2 to +3); HCO3 36.4 mmol/L (22.0-26.0); PCO2 72.8 mmHg (35.0-45.0); PO2 36.4 mmHg (80.0-100.0); pH 7.317 (7.360-7.450); sO2 62.2 % (92.0-98.0)
--- NOTE | 2021-09-08 07:26 | NUR ---
RECEIVED CARE OF THIS PATIENT AT 1900. PATIENT ALERT AND ORIENTED X4. HAS SUPRAPUBIC. ACCUCHECK WAS 131, RECEIVED NO COVERAGE. C/O PAIN IN RECTUM AND HAVING PROBLEMS HAVING A BM. TYLENOL GIVEN FOR PAIN AND MIRALAX GIVEN FOR BM. O2 SAT DROPPED THIS AM TO THE 50'S. RAPID RESPONSE CALLED. PATIENT WAS PALE AND C/O DIFFICULT IN BREATHING. Trey SOARES PSYCHIATRIC TECHNICIAN WAS NOTIFIED AND ORDERED LAB AND A CXR. ABG'S WERE DONE. PATIENT TRANSFERED TO , REPORT WAS CALLED TO STEVE.
--- NOTE | 2021-09-08 07:33 | NUR ---
cordage sales representative called for decreased o2 sats. see cordage sales representative flowsheet.
[2021-09-08 07:59] LABS: ABSOLUTE NEUTROPHILS 7.9 thou/uL (1.4-8.2); BASOPHILS 0.3 % (0.0-2.0); EOSINOPHILS 2.8 % (0.0-3.0); HEMATOCRIT 26.2 % (42.0-52.0); HEMOGLOBIN 8.5 gm/dL (14.0-18.0); LYMPHOCYTES 4.6 % (24.0-44.0); MCH 29.6 pg (26.0-34.0); MCHC 32.5 g/dL (28.0-37.0); MCV 91.3 fL (80.0-100.0); MONOCYTES 13.7 % (1.0-8.0); PLATELET COUNT 74 thou/uL (150-400); POLYS 78.6 % (36.0-66.0); RBC 2.87 mil/uL (4.50-6.00); RDW 16.1 % (10.5-14.5)
[2021-09-08 08:30] VITALS: BP 117/54
[2021-09-08 11:50] VITALS: BP 117/51
--- NOTE | 2021-09-08 13:57 | NUR ---
Pt now on CCU after ACCOUNT RESOLUTION ANALYST this am. Pt on bipap. No weekend dc anticipated. [facility] admissions alerted as they are reviewing the referral. They will need update faxed Saturday.
--- NOTE | 2021-09-08 14:51 | NUR ---
TOOK OVER CARE FOR THIS PATIENT AT 0700. RECEIVED REPORT FROM 4 EDON NURSE. PATIENT WEARING BIPAP WHEN ARRIVED TO UNIT DUE TO HYPOXIC EVENT. PATIENT CURRENTLY WEARING 8 L OXYGEN VIA HIGH FLOW NASAL CANNULA; PATIENT DENIES SOA AND ISN'T IN DISTRESS. MIKKI ORDERED REPEAT CHEST XRAY DUE TO CHANGE IN OXYGEN STATUS FROM THIS AM. PATIENT SPOUSE IS PRESENT IN ROOM. DENIES PAIN. PATIENT NPO AT THIS TIME. FALL PRECAUTIONS IN PLACE AND CALL LIGHT WITHIN REACH.
[2021-09-08 15:50] VITALS: BP 158/64
[2021-09-08 19:25] VITALS: BP 177/70
[2021-09-08 23:43] VITALS: BP 146/62
[2021-09-09 03:26] VITALS: BP 150/72
--- NOTE | 2021-09-09 06:25 | NUR ---
patient c/o soa throught the shift. rt called o2 increased from 10L to 8L and back to 10L. oxygen sat is >92% on 10L this shift. patient turned q 2 hours. patient been npo this shift but requesting for meals, patient reeducated the need of being npo. patient on continous oxygen. patient asleep at this time no soa or distress noted. patient in bed asleep at this time breathing regular and unlaboured.
[2021-09-09 09:25] VITALS: BP 142/96
[2021-09-09 11:11] LABS: ABSOLUTE NEUTROPHILS 10.3 thou/uL (1.4-8.2); BASOPHILS 0.1 % (0.0-2.0); HEMATOCRIT 29.1 % (42.0-52.0); HEMOGLOBIN 9.6 gm/dL (14.0-18.0); LYMPHOCYTES 1.8 % (24.0-44.0); MCH 29.5 pg (26.0-34.0); MCV 89.5 fL (80.0-100.0); MONOCYTES 1.9 % (1.0-8.0); PLATELET COUNT 113 thou/uL (150-400); POLYS 96.2 % (36.0-66.0); RBC 3.25 mil/uL (4.50-6.00); RDW 15.4 % (10.5-14.5); WBC 10.7 thou/uL (4.0-11.0)
[2021-09-09 11:26] LABS: ALBUMIN 2.7 g/dL (3.4-5.0); CALCIUM 8.6 mg/dL (8.5-10.1); CREATININE 0.8 mg/dL (0.7-1.3); POTASSIUM 4.8 mmol/L (3.5-5.1); TOTAL BILIRUBIN 0.5 mg/dL (0.2-1.0); TOTAL PROTEIN 5.9 g/dL (6.4-8.2)
[2021-09-09 16:00] VITALS: BP 158/65
[2021-09-09 19:09] VITALS: BP 137/73
--- NOTE | 2021-09-09 21:29 | NUR ---
PT RESTING IN BED, O2 NC HIGH MAAME 12L. PT MUMBLED SPEECH. LUNGS WHEEZES. PALE SKIN TONE. SUPRA PUBIC CATH INTACT. OX3. BED ALARM ON. COMPLIANT WITH MEDS WHOLE IN APPLESAUCE, NECTAR LIQUIDS.
[2021-09-10 04:00] VITALS: BP 168/70
[2021-09-10 05:20] LABS: ALBUMIN 2.6 g/dL (3.4-5.0); CALCIUM 8.5 mg/dL (8.5-10.1); CREATININE 0.9 mg/dL (0.7-1.3); PHOSPHORUS 3.6 mg/dL (2.6-4.7)
--- NOTE | 2021-09-10 06:07 | NUR ---
PT STATES HE GETS CATHETER FLUSHED DAILY, WILL HAVE DAY NURSE F/U WITH PROVIDER DURING ROUNDS FOR POSSIBLE ORDER.
[2021-09-10 07:54] VITALS: BP 157/66
[2021-09-10 13:03] VITALS: BP 149/65
[2021-09-10 15:45] VITALS: BP 135/64
--- NOTE | 2021-09-10 17:51 | NUR ---
Assumed pt care at 7am.Pt in and out of bed with assist and oxygen . Assessment completed.vss. Assisted pt with tray setup at allmeals. Good appetite. Pt took med with apple sauce and well tolerated. here later this shift around noon. Centerless Grinder Set Up Operator gave pt bath and change into chiefs pj. Pt has o2 on at [address] precautions in [address].No verbal c/o. Will continue to monitor.
[2021-09-10 19:32] VITALS: BP 105/44
[2021-09-11 04:32] VITALS: BP 171/77
[2021-09-11 05:06] LABS: ALBUMIN 2.6 g/dL (3.4-5.0); CALCIUM 8.9 mg/dL (8.5-10.1); CREATININE 0.9 mg/dL (0.7-1.3); PHOSPHORUS 3.7 mg/dL (2.6-4.7); POTASSIUM 4.9 mmol/L (3.5-5.1)
[2021-09-11 05:21] LABS: HEMATOCRIT 27.5 % (42.0-52.0); HEMOGLOBIN 8.8 gm/dL (14.0-18.0); MCH 29.3 pg (26.0-34.0); MCHC 32.1 g/dL (28.0-37.0); MCV 91.4 fL (80.0-100.0); RBC 3.01 mil/uL (4.50-6.00); RDW 16.3 % (10.5-14.5); WBC 13.2 thou/uL (4.0-11.0)
[2021-09-11 08:01] VITALS: BP 166/70
[2021-09-11 12:11] VITALS: BP 119/35
[2021-09-11 16:22] VITALS: BP 113/46
--- NOTE | 2021-09-11 17:35 | NUR ---
Patient requiring supplemental oxygen 10-12 liters of oxygen. He is not stablle for dc to skilled at this time. 5N to brinda. faxed updated clinical information to [facility].
[2021-09-11 19:38] VITALS: BP 113/57
[2021-09-12 03:37] LABS: HEMATOCRIT 28.6 % (42.0-52.0); HEMOGLOBIN 9.4 gm/dL (14.0-18.0); MCH 29.8 pg (26.0-34.0); MCHC 32.7 g/dL (28.0-37.0); RBC 3.14 mil/uL (4.50-6.00)
[2021-09-12 03:59] VITALS: BP 152/76
[2021-09-12 04:31] LABS: ALBUMIN 2.7 g/dL (3.4-5.0); CALCIUM 8.6 mg/dL (8.5-10.1); CREATININE 0.9 mg/dL (0.7-1.3); PHOSPHORUS 4.3 mg/dL (2.5-4.9)
[2021-09-12 04:52] LABS: POTASSIUM 5.9 mmol/L (3.5-5.1)
[2021-09-12 07:49] VITALS: BP 144/62
[2021-09-12 10:49] LABS: HCO3 43.4 mmol/L (22.0-26.0); PO2 205.1 mmHg (80.0-100.0); pH 7.292 (7.360-7.450); sO2 99.2 % (92.0-98.0)
[2021-09-12 11:58] LABS: BE(vivo) 15.1 mmol/L (-2 to +3); HCO3 42.6 mmol/L (22.0-26.0); pH 7.393 (7.360-7.450); sO2 45.6 % (92.0-98.0)
[2021-09-12 11:59] LABS: PCO2 71.5 mmHg (35.0-45.0); PO2 26.5 mmHg (80.0-100.0)
[2021-09-12 12:49] LABS: BE(vivo) 13.3 mmol/L (-2 to +3); HCO3 40.9 mmol/L (22.0-26.0); pH 7.369 (7.360-7.450); sO2 71.1 % (92.0-98.0)
[2021-09-12 12:50] LABS: PCO2 72.6 mmHg (35.0-45.0); PO2 40.2 mmHg (80.0-100.0)
--- NOTE | 2021-09-12 13:58 | NUR ---
Nutrition: pt admitted with AMS, recurrent UTIs. Dysphagia-followed by ST. Previously on pureed nectar thick liquids diet with 75-100% intake of meals. Placed NPO this am by nsg due to confusion. ST will re-eval. 215# reportedly error per . 185# admit weight more accurate and around UBW. K+ 5.9 today, previously all other WNL. Follow trends for further diet restriction needs. Place as low nutrition risk for now.
[2021-09-12 15:52] VITALS: BP 138/70
--- NOTE | 2021-09-12 16:13 | NUR ---
PT WAS FOUND THIS AM TO HAVE AMS, CXR/ABG ORDERED. PT NOW ALERT TO SELF AND SITUATION. PT AFEBRILE, ADEQUATE UOP THROUGH SUPRA-PUBIC, NO BM. PT NOW NPO BECAUSE OF CONCERN FOR ASPIRATION. SPEECH THERAPY WAS CONSULTED FOR SWALLOW EVAL. PT AND HAVE BEEN THOUROUGHLY UPDATED AND EDUCATED ON PT CONDITION AND POC, PT SLOWLY PROGRESSING TOWARDS POC.
--- NOTE | 2021-09-12 17:11 | NUR ---
[facility]
[2021-09-12 20:14] VITALS: BP 122/55
--- NOTE | 2021-09-13 01:27 | NUR ---
TOOK OVER CARE. PT SLEEPING IN BED. O2 PER NC. CONTINUOUS PULSE OX INTACT. SUPRA PUBIC CATH TO DD.
[2021-09-13 03:57] VITALS: BP 149/72
[2021-09-13 04:55] LABS: HEMATOCRIT 28.5 % (42.0-52.0); HEMOGLOBIN 9.5 gm/dL (14.0-18.0); MCH 30.3 pg (26.0-34.0); MCHC 33.3 g/dL (28.0-37.0); MCV 91.2 fL (80.0-100.0); RBC 3.13 mil/uL (4.50-6.00); RDW 16.4 % (10.5-14.5); WBC 10.8 thou/uL (4.0-11.0)
[2021-09-13 05:07] LABS: ALBUMIN 2.6 g/dL (3.4-5.0); CALCIUM 8.8 mg/dL (8.5-10.1); CREATININE 1.4 mg/dL (0.7-1.3); MAGNESIUM 1.9 mg/dL (1.8-2.4); PHOSPHORUS 4.1 mg/dL (2.5-4.9)
[2021-09-13 05:35] LABS: POTASSIUM 4.6 mmol/L (3.5-5.1)
[2021-09-13 07:33] VITALS: BP 137/71
--- NOTE | 2021-09-13 14:53 | NUR ---
PT WORKED WITH PT/OT TODAY. PT AFEBRILE, ADEQUATE UOP, NO BM, FAIR APPETITE. OXYGEN TITRATED. PT AND AT BEDSIDE HAVE BEEN THOUROUGHLY UPDATED AND EDUCATED ON PT CONDITION AND POC. PT SLOWLY PROGRESSING TOWARDS POC.
[2021-09-13 15:22] VITALS: BP 132/55
--- NOTE | 2021-09-13 15:51 | NUR ---
Spoke with discussed plan for dc to [facility] once stable. Left message with [facility] that patient not stable for dc today.
[2021-09-13 19:49] VITALS: BP 132/72
--- NOTE | 2021-09-14 04:58 | NUR ---
RECIEVED PATIENT AT 1900H.ON NASAL CANNULA AT 4LPM, STAURATING WELL.WITH SUPRAPUBIC CATHETER INTACT.NOT IN PAIN OR DISTRESS. ALL NEEDS ATTENDED.FALL PREVENTION MEASURES MAINTAINED.FALL PREVENTION MEASURES MAINTAINED.
[2021-09-14 05:04] VITALS: BP 162/69
[2021-09-14 05:54] LABS: WBC 9.8 thou/uL (4.0-11.0)
[2021-09-14 06:03] LABS: HEMOGLOBIN 9.3 gm/dL (14.0-18.0); MCHC 33.3 g/dL (28.0-37.0); RBC 3.11 mil/uL (4.50-6.00); RDW 15.9 % (10.5-14.5)
[2021-09-14 06:53] LABS: ALBUMIN 2.7 g/dL (3.4-5.0); CALCIUM 8.7 mg/dL (8.5-10.1); CREATININE 1.1 mg/dL (0.7-1.3); PHOSPHORUS 2.5 mg/dL (2.5-4.9); POTASSIUM 5.7 mmol/L (3.5-5.1)
[2021-09-14 07:39] VITALS: BP 172/52
[2021-09-14 15:16] VITALS: BP 157/62
--- NOTE | 2021-09-14 15:57 | NUR ---
PATIENT RESTING IN BED AT THIS TIME. PATIENT WEARING 5 L NC AT THIS TIME WITH CONTINUOUS SPO2. PATIENT DENIES SOA AT THIS TIME BUT BECOMES SOA WITH EXERTION. PATIENT HARD OF HEARING AND IS CONFUSED. PATIENT DENIES PAIN AT THIS TIME. PATIENT EATING AND DRINKING WELL. FAMILY PRESENT AT BEDSIDE. DENIES ANY NEEDS. FALL PRECAUTIONS IN PLACE AND CALL LIGHT WITHIN REACH.
[2021-09-14 20:07] VITALS: BP 151/62
[2021-09-15 03:11] VITALS: BP 152/65
--- NOTE | 2021-09-15 03:13 | NUR ---
PT TRANSFERRED FROM AT AROUND 0300 HRS, VIA BED. SLEEPING. AWAKENS AND ANSWERS QUESTIONS BUT HE IS VERY [place]. ON /,SATTING AT 100%-CONTINUOS PULSE OX IN PLACE. BUE SWOLLEN, ELEVATED ON PILLOWS. BLE ALSO ELEVATED. SP WITH LIGHT YELLOW OUTPUT.FALL PREC IN PLACE, FREQ CHECKS PROVIDED.
--- NOTE | 2021-09-15 04:19 | NUR ---
RECIEVED PATIENT AT 1900H.ON NASAL CANNULA AT 5LPM, SATURATING MORE THAN 95%.WITH SUPRAPUBIC CATHETER INTACT.NO COMPLAINTS OF PAIN.NOT IN DISTRESS.ALL NEEDS ATTENDED.TRASFERED PATIENT TO 4S ON STABLE CONDITION, REPORT GIVEN TO THE RN AT 4S.
[2021-09-15 07:47] VITALS: BP 183/80
[2021-09-15 12:33] LABS: BE(vivo) 20.4 mmol/L (-2 to +3); HCO3 50.7 mmol/L (22.0-26.0); PO2 131.7 mmHg (80.0-100.0); sO2 98.1 % (92.0-98.0)
[2021-09-15 12:34] LABS: PCO2 104.4 mmHg (35.0-45.0); pH 7.304 (7.360-7.450)
--- NOTE | 2021-09-15 13:56 | NUR ---
ASSUMED PT CARE AROUND 0715. PATIENT ALERT X ORIENTED X SELF, CONFUSED, HARD OF HEARING.Q X 2 TURN. BASELINE 5L/O2/NC. IV RT WRIST/SL. SWOLLEN AND BRUISED HAND. SUPRAPUBIC CATHETER ON. ON TELEMONITORING. PUREED DIET AND HONEY THICK LIQUID. PATIENT WAS DOING OKAY TODAY MORNING, BREAKFAST SETUP AND PT FED HIMSELF, TOOK MORNING MEDS, TALKED WITH HIS NIECE WHO WAS IN THE ROOM TODAY MORNING. AROUND 1130, WORKING WITH PHYSICAL THERAPY HIS O2 SAT CAME DOWN UPTO 80'S, HAD TO CALL DIRECTOR FINANCIAL SYSTEMS. NOW ON COMFORT CARE SINCE 1230. DAUGHTER AND IN THE ROOM. PATIENT CAN HAVE 2 VISITORS IN THE ROOM. COMFORTABLY RESTING IN BED. WILL CONTINUE TO MONITOR.
--- NOTE | 2021-09-15 14:07 | NUR ---
CARE TEAM HAD INDICATED THAT PT WAS MEDICALLY STABLE TO DC TO [facility] THIS DAY. CM CONTACTED ADMISSIONS AND ASKED FOR COVID NOW TO BE COLLECTED. A RAPID RESPONSE WAS CALLED ON PT. PT HAD A DECLINE AND SUBSEQUENTLY COMFORT MEASURES WERE ORDERED. CM HAS ASKED HOSPITALIST IS HOSPICE GIP WOULD BE APPROPRIATE AT THIS TIME. AWAITING RESPONSE.
--- NOTE | 2021-09-15 15:47 | NUR ---
Pt became less responsive & o2 sats dropped-PROFESSOR OF COMMUNICATION activated-see flowsheet
[2021-09-15 16:50] VITALS: BP 169/78
[2021-09-15 20:34] VITALS: BP 161/75
--- NOTE | 2021-09-18 15:38 | HC ---
[facility] [place] [address] CONSULTATION Name: TEDDY CARLOS Room #: 447-P [facility] ..#: [id number] Admission: 09/05/21 Attend Phys: Susan Roldan Discharge: 09/15/21 Date of : 34 Report #: [id number] THIS REPORT FOR: cc: Andres Moraes MD, Kirk D. MD Smithson, David G. MD ~ DATE OF SERVICE: 09/06/2021 HISTORY OF PRESENT ILLNESS: The patient is an 89-year-old white male who was originally admitted to [facility] from [facility] on 08/20/2021 through 08/25/2021 with acute on chronic respiratory failure. He further stabilized with ambulating a short distance with min assist with a walker and apparently because [facility] had issues with COVID, he ended up being discharged from [place] to [facility] He has been at [facility], but has had problems with increased confusion and now has been readmitted to [facility] with noted recurrent urinary tract infections. He does have a history of neurogenic bladder with a suprapubic tube. He also has continued issues with shortness of breath and has severe pulmonary hypertension. He is noted to have bilateral moderate infiltrates on chest x-ray, possibly edema versus pneumonia. He has thus been readmitted with urinary tract infection with recent culture growing MRSA and Enterococcus faecalis as well as acute on chronic hypoxic respiratory failure. He has had mental status changes. 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 He has been given normal saline hydration with improvement in his mentation. We are seeing him in rehabilitation medicine consultation. PAST MEDICAL AND SURGICAL HISTORY: As noted above. There is a history of dementia. He has had bilateral total knee replacements, neurogenic bladder with SP tube is noted above. Asthma with COPD, on 3 liters; history of pulmonary embolism, on chronic anticoagulation therapy; right shoulder surgery; diabetes mellitus; prior coronary artery bypass grafting; and protein calorie malnutrition. MEDICATIONS: Please see the full medication listing. ALLERGIES: Are multiple as noted. SOCIAL HISTORY: Previously had been living in a house, one floor, with , catrina. He does have a wheelchair. REVIEW OF SYSTEMS: Complains of being tired and does not like to do a lot of therapy. No current chest pain, shortness of breath, or abdominal discomfort. PHYSICAL EXAMINATION: GENERAL: An 89-year-old white male, somewhat frail in appearance. No obvious distress. [facility] [address] [address] CONSULTATION Name: TEDDY CARLOS Room #: 447-P [facility].#: [id number] Admission: 09/05/21 Attend Phys: Susan Roldan Discharge: 09/15/21 Date of : 34 Report #: [id number] VITAL SIGNS: Temperature 36.7, pulse 60, respirations 17, and blood pressure 118/56. Nasal prong O2 is in place. He is currently on 6 liters. He was noted to be on a Ventimask earlier this morning. HEENT: Facies appeared symmetric. NEUROLOGIC: Follows basic 1-step commands. He has decreased range of motion in the bilateral shoulders at end range, and I would grade his strength at probably a grade 3+/5. Lower extremity strength is probably 3+/5. He indicated that he was not up for physical therapy when asked this morning. Tone appears to be intact in the bilateral lower extremities. He does have a suprapubic tube in place. ASSESSMENT: An 89-year-old white male with the following problem list: 1. Recurrent urinary tract infection with recent culture growing Methicillin-resistant Staphylococcus aureus and Enterococcus faecalis. 2. Acute on chronic hypoxemic respiratory failure. 3. Severe pulmonary hypertension. 4. Hypertension. 5. Decreased responsiveness. He has an old lacunar infarct. Noted to have improvement in his responsiveness with normal saline hydration. 6. Diabetes mellitus. 7. Neurogenic bladder with suprapubic catheter. 8. Coronary artery disease, status post coronary artery bypass grafting x3. 9. Paroxysmal atrial fibrillation. 10. DNR. PLAN: The patient was just at [facility] and now most recently was admitted here from [facility]. I do not see that he has the tolerance and is not appropriate for an acute inpatient [facility] rehabilitation stay. I would agree with returning back for a skilled level stay, which appears to be most appropriate as he further medically stabilizes. Thank you for asking us to assist in this patient's care. <ELECTRONICALLY SIGNED> By: See Wagner MD 09/18/21 [id number] See Wagner MD /nt
== END 2021-09-15 20:55 | disposition hospice, inpatient (51) | DRG 177 ==
LOC: ER 13:21 → 4W 14:27 → EROBS 14:27 → 4W 17:48 → 2N 09-08 07:17 → 4S 09-15 03:01
PROVIDERS: Internal Medicine Pulmonary Disease; Nurse Practitioner; Nurse Practitioner Family; Specialist; Student in an Organized Health Care Education/Training Program; ADMIT Hospitalist; ATTEND Hospitalist
DX: J69.0 Pneumonitis due to inhalation of food and vomit (principal); G93.41 Metabolic encephalopathy; J96.21 Acute and chronic respiratory failure with hypoxia; J96.22 Acute and chronic respiratory failure with hypercapnia; N39.0 Urinary tract infection, site not specified; E46 Unspecified protein-calorie malnutrition; I42.9 Cardiomyopathy, unspecified; D69.6 Thrombocytopenia, unspecified; I27.20 Pulmonary hypertension, unspecified; I25.10 Atherosclerotic heart disease of native coronary artery without angina pectoris; E11.9 Type 2 diabetes mellitus without complications; I48.0 Paroxysmal atrial fibrillation; N31.9 Neuromuscular dysfunction of bladder, unspecified; Z20.822 Contact with and (suspected) exposure to COVID-19; E78.5 Hyperlipidemia, unspecified; I10 Essential (primary) hypertension; Z96.653 Presence of artificial knee joint, bilateral; E03.9 Hypothyroidism, unspecified; F41.1 Generalized anxiety disorder; K21.9 Gastro-esophageal reflux disease without esophagitis; N40.0 Benign prostatic hyperplasia without lower urinary tract symptoms; F03.90 Unspecified dementia, unspecified severity, without behavioral disturbance, psychotic disturbance, mood disturbance, and anxiety; I95.9 Hypotension, unspecified; E86.0 Dehydration; Z66 Do not resuscitate; B95.62 Methicillin resistant Staphylococcus aureus infection as the cause of diseases classified elsewhere; D63.8 Anemia in other chronic diseases classified elsewhere; R53.81 Other malaise; E87.5 Hyperkalemia; Z93.50 Unspecified cystostomy status; Z95.1 Presence of aortocoronary bypass graft; Z86.711 Personal history of pulmonary embolism; Z79.01 Long term (current) use of anticoagulants; Z68.25 Body mass index [BMI] 25.0-25.9, adult; I25.2 Old myocardial infarction; Z88.0 Allergy status to penicillin; Z88.2 Allergy status to sulfonamides; Z88.8 Allergy status to other drugs, medicaments and biological substances; Z91.041 Radiographic dye allergy status; Z87.891 Personal history of nicotine dependence; Z86.73 Personal history of transient ischemic attack (TIA), and cerebral infarction without residual deficits
CPT/HCPCS: 10045; 10081

== ENCOUNTER 2021-09-15 21:04 | Inpatient (IN) | payer OTHER ==
--- NOTE | 2021-09-16 05:02 | NUR ---
ASSUMED CARE OF PT AT 1900. BEDSIDE REPORT RECEIEVED, RENE NURSE FROM [facility] AT BEDSIDE WELL. FREDDIE ASSESSMETN COMPLETE. PT IS RESPONSIVE BUT LETHARGIC. DENIES ANY PAIN AT FREDDIE. GUTIERREZ CARE COMPLETE. 2 L NC FOR COMFORT. Q2 HOURLY TURNS AND BARRIER CREAM APPLIED. PAIN MEDS ADMINISTERED FOR COMFORT INDICATED. HOURLY ROUNDING CONTINUNG. SPOKE WITH KIZZYY MEMER ON PHONE FOR UDPATES, VERBALIZED APPRECIATION. ALL NEEDS MET, CALL LIGHT IN REACH.
[2021-09-16 05:11] VITALS: BP 160/72
--- NOTE | 2021-09-16 11:19 | NUR ---
ASSUMED PT CARE THIS AM. PT WAS ABLE TO OPEN EYES AND NONVERBAL. PT HAS R HAND SALINE LOCKED. PT AT 0823. INFORMED HOUSE SUP, ADMITTING DR, HOSPITALIST, BRIDGE GANG WORKER, HOME AND CAYUGA TRANSPLANT. PT HAS 3L NC O2. REMOVED SUPRAPUBIC CATH AND IV. PT IS NPO. CALLED TO INFORM PT TODAY. PT FAMILY WAS AT THE BEDSIDE. CALLED SECURITY TO FLAME HARDENER THE PT.
== END 2021-09-16 11:46 | DRG 189 ==
LOC: 4S 21:04
PROVIDERS: ADMIT Hospitalist; ATTEND Hospitalist
DX: J96.21 Acute and chronic respiratory failure with hypoxia (principal); G93.41 Metabolic encephalopathy; N39.0 Urinary tract infection, site not specified; J96.22 Acute and chronic respiratory failure with hypercapnia; J44.9 Chronic obstructive pulmonary disease, unspecified; J45.909 Unspecified asthma, uncomplicated; I10 Essential (primary) hypertension; E78.5 Hyperlipidemia, unspecified; N40.0 Benign prostatic hyperplasia without lower urinary tract symptoms; K21.9 Gastro-esophageal reflux disease without esophagitis; F03.90 Unspecified dementia, unspecified severity, without behavioral disturbance, psychotic disturbance, mood disturbance, and anxiety; E11.9 Type 2 diabetes mellitus without complications; E03.9 Hypothyroidism, unspecified; Z66 Do not resuscitate; Z96.653 Presence of artificial knee joint, bilateral; J84.10 Pulmonary fibrosis, unspecified; I27.20 Pulmonary hypertension, unspecified; Z20.822 Contact with and (suspected) exposure to COVID-19; I48.0 Paroxysmal atrial fibrillation; D64.9 Anemia, unspecified; N31.9 Neuromuscular dysfunction of bladder, unspecified; Z86.711 Personal history of pulmonary embolism; Z87.891 Personal history of nicotine dependence; Z95.1 Presence of aortocoronary bypass graft; Z88.0 Allergy status to penicillin; Z88.2 Allergy status to sulfonamides; Z88.8 Allergy status to other drugs, medicaments and biological substances; Z91.041 Radiographic dye allergy status; Z51.5 Encounter for palliative care
CPT/HCPCS: 10102